=== PATIENT | female | born 1955 | race African-American/Black ===

== ENCOUNTER 2019-01-31 20:37 | Inpatient (IN) | payer MEDICARE ==
[2019-01-31] MEDS ORDERED: Lorazepam 2 MG/ML VIAL SLOW IVP PRN (21:21)
--- NOTE | 2019-01-31 21:45 | PDOC.EVN ---
Event Note - Event Note Event Note: [id number] HP
[2019-01-31] MEDS ORDERED: cefTRIAXone\\ROCEPHIN 2 GM VIAL ONE (21:59)
[2019-01-31] MEDS ORDERED: Azithromycin 500 MG VIAL ONE (21:59)
--- NOTE | 2019-01-31 22:37 | HP ---
CHIEF COMPLAINT: Seizures. HISTORY OF PRESENT ILLNESS: Ms. Conway is a 63-year-old female with past medical history of seizures, asthma, thrombocytopenia, urinary incontinence, developmental disorder, being transferred from [facility] after she presented there with seizure activity. It was described that the patient leaned back and her eyes rolled back. It was also reported the patient was screaming during the seizure activity? Initially, the patient was complaining of pain in the right lower extremity. Also it was reported that the oxygen saturation went down from 98% to 94% en route and was placed on 4 L/minute nasal cannula. Currently, the patient is 100% oxygen saturation on room air. The patient is a poor historian, but she is awake, unable to provide any history at this point. PAST MEDICAL HISTORY: 1. Developmental disorder/impairment. 2. Seizures. 3. Asthma? 4. Thrombocytopenia. PAST SURGICAL HISTORY: No reported past surgical history. SOCIAL HISTORY: The patient lives at home with stepmother. No reported history of alcohol use, drug use or smoking. ALLERGIES: ALLERGIC TO PENICILLIN. HOME MEDICATIONS: Please see home medication reconciliation form for updated medications. FAMILY HISTORY: Unknown. REVIEW OF SYSTEMS: Unable to obtain due to the patient's underlying condition. PHYSICAL EXAMINATION: GENERAL: The patient is awake, alert, does not appear to be in acute distress. VITAL SIGNS: Blood pressure 117/66, pulse is 91, respiratory rate is 24, temperature 98.6, and pulse oximetry is 100% on room air. HEAD AND NECK: Normocephalic, atraumatic. NECK: Supple. No JVD. CHEST: Clear bilateral air entry. HEART: S1 and S2. Regular. ABDOMEN: Soft, nontender. Bowel sounds present. NEUROLOGIC: Awake, alert, moving extremities. PSYCHIATRIC: Unable to assess. EXTREMITIES: No clubbing or cyanosis. LABORATORY DATA: WBC is 5.3, hemoglobin 11.8, platelets 112. Sodium 143, potassium 3.7, glucose 135. Initial lactic acid was 6.3. Repeat lactic acid is 4.1. IMAGING STUDIES: CTA of the chest was done, which shows chronic changes with signs of pulmonary arterial hypertension. ASSESSMENT: 1. Seizures, breakthrough? 2. Oxygen desaturation, transient. 3. Lactic acidosis, no obvious signs of infection at this point. 4. Developmental/neurological disorder. 5. Asthma. 6. History of thrombocytopenia. PLAN: 1. Admit. 2. Frequent neuro checks. 3. Seizure precautions. 4. Use benzodiazepine as needed for seizure activity. 5. Reconcile home medications. 6. Consult Neurology in a.m. for evaluation of further recommendations. 7. Continue IV fluid hydration and follow lactic acid level. 8. Cultures were done and the patient was given 1 dose of IV antibiotic in the ED, reassess in a.m. for the continuous need of antibiotic? 9. Reconcile home medications. 10. Deep venous thrombosis prophylaxis, SCD/mobilization. 11. Expected length of stay, 2 midnights or more. Job ID: [id number]
[2019-02-01] MEDS: Sodium Chloride 0.9% 1,000 ML IV SCH ×2 (00:14→14:36)
[2019-02-01 01:01] LABS: Lactic Acid 1.4 mmol/L (0.5-2.2)
[2019-02-01 07:29] VITALS: BMI 41.4
[2019-02-01] MEDS ORDERED: PHENobarbital 32.4 MG TAB PO SCH ×2 (09:45→21:00)
--- NOTE | 2019-02-01 16:15 | PRG ---
DATE OF SERVICE: 02/01/2019 SUBJECTIVE: The patient is seen and examined at the bedside. She is a very poor historian. She does not know what medications she is taking and how she is taking them. OBJECTIVE: VITAL SIGNS: Blood pressure is 115/73, pulse is 110, temperature is 99.8, respiratory rate is 18, and O2 saturation is 97% on room air. HEENT: Head is atraumatic and normocephalic. Eyes are PERRLA. Sclerae are nonicteric. Oral mucosa is moist. NECK: Supple. LUNGS: Breath sounds slightly diminished at both bases. No crackles. No rales. HEART: S1 and S2 normal. Tachycardic. No S3. No S4. ABDOMEN: Soft and obese. NEUROLOGIC: She follows my commands. She moves her all 4 extremities. IMPRESSION: 1. Recurrent seizures. 2. Lactic acidosis, most likely related to seizures. 3. History of asthma. 4. Developmental/neurological disorder. 5. History of thrombocytopenia. PLAN: We were not able to find any good source of home medications, she is taking and she was not able to help us. We will put her on a regimen, which was in our file from the previous encounters. We will have the neurologist to stop by and see her and recommend any antiseizure medicines. For now, we will continue her phenobarbital and her blood cultures came back negative, so I think all this was just breakthrough seizures and we will try to call the Pharmacy, but today is Saturday and everything is closed. We will see what we can do tomorrow. Job ID: [id number]
[2019-02-01] MEDS: Montelukast Sodium 10 mg Tablet PO SCH (20:27)
[2019-02-01] MEDS: Acetaminophen 325 MG TAB PO PRN (20:28)
[2019-02-01] MEDS: PHENobarbital 32.4 MG TAB PO SCH (20:28)
[2019-02-02] MEDS: Sodium Chloride 0.9% 1,000 ML IV SCH ×2 (01:50→14:30)
[2019-02-02 06:12] LABS: Anion Gap 7 mmol/L (10-20); BUN (Urea Nitrogen) 10 mg/dL (9.8-20.1); Calc. Creatinine Clearance 133 mL/min (70-130); Calcium 8.3 mg/dL (7.8-10.44); Carbon Dioxide 26 mmol/L (23-31); Chloride 112 mmol/L (98-107); Estimated GFR-MDRD Greater than 90; Glucose 100 mg/dL (80-115); Potassium 3.8 mmol/L (3.5-5.1); Sodium 141 mmol/L (136-145)
[2019-02-02 06:49] LABS: #Lymphocytes 0.5 thou/uL (1.20-3.40); #Monocytes 0.4 thou/uL (0.11-0.59); #Neutrophils 2.5 thou/uL (1.40-6.50); %Lymphocytes 14.3 % (21.0-51.0); %Monocytes 10.5 % (0.0-10.0); %Neutrophils 75.3 % (42.0-75.0); Hemoglobin 10.6 g/dL (12.0-16.0); Mean Corpuscular HGB CONC 32.7 g/dL (32.0-36.0); Mean Corpuscular Volume 88.5 fL (78.0-98.0); Mean Platelet Volume 7.2 fL (7.4-10.4); Platelet Count 87 thou/uL (130-400); RBC Distribution Width 12.7 % (11.5-14.5); Red Blood Cell (RBC) Count 3.68 mill/uL (4.20-5.40); White Blood Cell (WBC) Count 3.3 thou/uL (4.8-10.8)
[2019-02-02] MEDS: PHENobarbital 32.4 MG TAB PO SCH (09:55)
--- NOTE | 2019-02-02 14:38 | PRG ---
DATE OF SERVICE: 02/02/2019 SUBJECTIVE: The patient is seen and examined at the bedside. She is feeling good. She does not have much complaints to offer. There was no any unexpected events overnight. She did not have any seizures. She is tolerating food. OBJECTIVE: VITAL SIGNS: Blood pressure is 127/85, pulse is 95, temperature is 98.9, respirations 22, O2 saturation is 97% on room air. HEENT: Head is atraumatic and normocephalic. Eyes are PERRLA. Sclerae are nonicteric. Oral mucosa is moist. NECK: Supple. LUNGS: Clear. HEART: S1 and S2 normal. No S3. No S4. ABDOMEN: Soft, nontender, and nondistended. EXTREMITIES: No clubbing, cyanosis, or edema. NEUROLOGIC: She follows my commands. She moves all 4 extremities. There is some weakness in the lower extremities, 3/5 in both lower extremities. LABORATORY DATA: White count of 3.3, hemoglobin 10.6, hematocrit 32.5, platelet count is 87,000. Sodium of 141, potassium 3.8, chloride 112, CO2 of 26, BUN 10, creatinine 0.77. Phenobarbital level is less than 2.0. Calcium 8.3. IMPRESSION AND PLAN: 1. Recurrent seizures. The patient did not have more seizures during this hospitalization. She had additional dose of phenobarbital yesterday and she is on her regular dose at this point. Her level on phenobarbital was low. 2. Lactic acidosis, most likely related to seizures. 3. History of asthma. 4. Developmental/neurological disorder. 5. History of thrombocytopenia, which could be related to bone marrow suppression maybe by phenobarbital. I am going to switch her to Keppra 500 mg twice a day. Also, we will get Physical Therapy to evaluate her and treat, and we are trying to get new provider since the previous provider did not meet the patient's expectations and the Adult Protective Services were called. Job ID: [id number]
[2019-02-02] MEDS: levETIRAcetam 500 MG TAB PO SCH (20:12)
[2019-02-02] MEDS: Montelukast Sodium 10 mg Tablet PO SCH (20:16)
[2019-02-02] MEDS: Acetaminophen 325 MG TAB PO PRN (20:23)
[2019-02-03] MEDS ORDERED: Melatonin 3 MG TAB PO PRN (00:36)
[2019-02-03] MEDS: Sodium Chloride 0.9% 1,000 ML IV SCH (04:28)
[2019-02-03 06:12] LABS: #Lymphocytes 0.6 thou/uL (1.20-3.40); #Monocytes 0.3 thou/uL (0.11-0.59); #Neutrophils 2.1 thou/uL (1.40-6.50); %Eosinophils 0.1 % (0.0-10.0); %Lymphocytes 18.9 % (21.0-51.0); %Monocytes 10.5 % (0.0-10.0); %Neutrophils 70.5 % (42.0-75.0); Hemoglobin 10.9 g/dL (12.0-16.0); Mean Corpuscular HGB CONC 32.2 g/dL (32.0-36.0); Mean Corpuscular Hemoglobin 28.9 pg (27.0-31.0); Mean Corpuscular Volume 89.8 fL (78.0-98.0); Mean Platelet Volume 7.2 fL (7.4-10.4); Platelet Count 79 thou/uL (130-400); RBC Distribution Width 12.6 % (11.5-14.5); Red Blood Cell (RBC) Count 3.76 mill/uL (4.20-5.40)
[2019-02-03] MEDS: levETIRAcetam 500 MG TAB PO SCH ×2 (08:05→20:00)
--- NOTE | 2019-02-03 11:05 | PDOC.HOSPP ---
- Subjective Encounter Date: 02/03/19 Encounter Time: 08:15 Subjective: Patient seen and examined. No new complaints. No overnight events - Objective Vital Signs & Weight: Vital Signs (12 hours) Temp Pulse Resp BP Pulse Ox 02/03/19 08:00 98 02/03/19 05:58 85 99 02/03/19 04:54 98.4 F 83 20 122/80 98 02/03/19 00:00 99.1 F 91 20 115/74 99 Weight Weight 249 lb 1.957 oz I&O: 02/02/19 02/03/19 02/04/19 06:59 06:59 06:59 Intake Total 2700 3205 300 Output Total 1225 2300 Balance 1475 905 300 Result Diagrams: 02/03/19 05:50 02/02/19 04:58 Hospitalist ROS - Review of Systems Constitutional: denies: fever, chills, sweats, weakness, malaise, other Eyes: denies: pain, vision change, conjunctivae inflammation, eyelid inflammation, redness, other ENT: denies: ear pain, ear discharge, nose pain, nose discharge, nose congestion , mouth pain, mouth swelling, throat pain, throat swelling, other Respiratory: denies: cough, dry, shortness of breath, hemoptysis, SOB with excertion, pleuritic pain, sputum, wheezing, other Cardiovascular: denies: chest pain, palpitations, orthopnea, paroxysmal noc. dyspnea, edema, light headedness, other Gastrointestinal: denies: nausea, vomiting, abdominal pain, diarrhea, constipation, melena, hematochezia, other Genitourinary: denies: dysuria, frequency, incontinence, hematuria, retention, other Musculoskeletal: denies: neck pain, shoulder pain, arm pain, back pain, hand pain, leg pain, foot pain, other Skin: denies: rash, lesions, mao, bruising, other Neurological: denies: weakness, numbness, incoordination, change in speech, confusion, seizures, other - Medication Medications: Active Medications Generic Name Dose Route Start Last Admin Trade Name Freq PRN Reason Stop Dose Admin Acetaminophen 650 mg 02/01/19 20:18 02/02/19 20:23 Tylenol PO 650 mg Q6H PRN Administration Headache/Fever or Pain Albuterol/Ipratropium 3 ml 02/01/19:34 02/03/19 05:58 Duoneb NEB 3 ml Q4H PRN Administration SOB &/or Wheezing Sodium Chloride 1,000 mls @ 75 mls/hr 01/31/19 22:00 02/03/19 04:28 Normal Saline 0.9% IV Not Given .[id number] STEPHEN Levetiracetam 500 mg 02/02/19 21:00 02/03/19 08:05 Keppra PO 500 mg BID STEPHEN Administration Melatonin 3 mg 02/03/19 00:36 02/03/19 00:43 Melatonin PO 02/04/19 00:37 3 mg ONE PRN Administration Insomnia Montelukast Sodium 10 mg 02/01/19 21:00 02/02/19 20:16 Singulair PO 10 mg HS STEPHEN Administration Sodium Chloride 10 ml 02/01/19 21:00 02/03/19 08:05 Flush - Normal Saline IVF Not Given Q12HR STEPHEN - Exam General Appearance: NAD, awake alert Eye: PERRL, anicteric sclera ENT: normocephalic atraumatic, no oropharyngeal lesions Neck: supple, symmetric, no JVD, no thyromegaly Heart: RRR, no murmur, no gallops, no rubs, normal peripheral pulses Respiratory: CTAB, no wheezes, no rales, no ronchi, normal chest expansion Gastrointestinal: soft, non-tender, non-distended, normal bowel sounds Extremities: no cyanosis, no clubbing, no edema Skin: normal turgor, no lesions, no rashes Neurological: cranial nerve grossly intact, normal sensation to touch, no weakness, no focal deficits, no new deficit Musculoskeletal: normal tone, normal strength Psychiatric: normal affect, normal behavior, A&O x 3 Hosp A/P (1) Seizure Code(s): R56.9 - UNSPECIFIED CONVULSIONS Status: Acute (2) Lactic acidosis Code(s): E87.2 - ACIDOSIS Status: Acute (3) Pancytopenia Code(s): D61.818 - OTHER PANCYTOPENIA Status: Acute (4) Asthma Code(s): J45.909 - UNSPECIFIED ASTHMA, UNCOMPLICATED Status: Chronic Qualifiers: Asthma severity: mild Asthma persistence: intermittent Asthma complication type: uncomplicated Qualified Code(s): J45.20 - Mild intermittent asthma, uncomplicated (5) Seizure disorder Code(s): G40.909 - EPILEPSY, UNSP, NOT INTRACTABLE, WITHOUT STATUS EPILEPTICUS Status: Chronic - Plan old records reviewed/req, PT/OT continue keppra monitor medication reviewed as above symptomatic treatment neurology consult pending add folic acid and vitamin B12
[2019-02-03] MEDS: Acetaminophen 325 MG TAB PO PRN (19:53)
[2019-02-03] MEDS: Montelukast Sodium 10 mg Tablet PO SCH (20:00)
--- NOTE | 2019-02-03 21:29 | CON ---
DATE OF CONSULTATION: 02/03/2019 CONSULTING PHYSICIAN: Hospitalist Service. IMPRESSION: 1. Chronic seizures. 2. Noncompliance or poor absorption of phenobarbital. PLAN: 1. Keppra 500 mg twice a day. 2. Office followup. HISTORY OF PRESENT ILLNESS: Ms. Conway is a 63-year-old black female with a known history of seizures. She was admitted with shortness of breath after a recent blackout. There was no seizure activity reported. Her phenobarbital level was zero. Her workup suggests the possibility of pneumonia. She has been afebrile since admission. We started her on Keppra yesterday. She seems to be tolerating it well. PAST MEDICAL HISTORY: Unremarkable. FAMILY HISTORY: Unremarkable. SOCIAL HISTORY: No tobacco or alcohol. ALLERGIES: PENICILLIN. REVIEW OF SYSTEMS: Ten-system review of systems is otherwise negative. MEDICATIONS: Reviewed. PHYSICAL EXAMINATION: GENERAL: She is a somewhat overweight middle-aged woman, sitting up in her chair, in no distress. VITAL SIGNS: Stable. She is afebrile. HEENT: Pupils are equal and reactive. Conjunctivae are clear. Oropharynx is clear. NECK: Supple. EXTREMITIES: No cyanosis or edema. NEUROLOGIC: She is alert and appropriate. Her speech is fluent and clear. Cranial nerves are intact. Motor exam shows equal advanced practice provider strength. No abnormal movements are seen. Gait is not tested. LABORATORY DATA: EKG shows normal sinus rhythm. SUMMARY: This is a middle-aged woman with a history of seizures. She had a subtherapeutic phenobarbital level. It would be safer to switch her over to Keppra to avoid the possibility of withdrawal if she is noncompliant. Job ID: [id number]
[2019-02-04] MEDS: Folic Acid 1 MG TAB PO SCH (08:06)
[2019-02-04] MEDS: levETIRAcetam 500 MG TAB PO SCH ×2 (08:06→20:32)
[2019-02-04] MEDS: Cyanocobalamin (Vitamin B-12) 1,000 MCG TAB PO SCH (08:06)
[2019-02-04] MEDS: Acetaminophen 325 MG TAB PO PRN (19:14)
[2019-02-04] MEDS: Montelukast Sodium 10 mg Tablet PO SCH (20:32)
--- NOTE | 2019-02-04 23:10 | PDOC.HOSPP ---
- Subjective Subjective: Doing ok. Says she lives with her step-mother who is there to help her. Does not wear oxygen at home. - Objective Vital Signs & Weight: Vital Signs (12 hours) Temp Pulse Resp BP Pulse Ox 02/04/19 20:11 98.9 F 98 17 135/74 96 Weight Weight 249 lb 1.957 oz I&O: 02/03/19 02/04/19 02/05/19 06:59 06:59 06:59 Intake Total 3205 900 1500 Output Total 2300 Balance 235 520 3825 Result Diagrams: 02/03/19 05:50 02/02/19 04:58 Hospitalist ROS - Medication Medications: Active Medications Generic Name Dose Route Start Last Admin Trade Name Freq PRN Reason Stop Dose Admin Acetaminophen 650 mg 02/01/19 20:18 02/04/19 19:14 Tylenol PO 650 mg Q6H PRN Administration Headache/Fever or Pain Albuterol/Ipratropium 3 ml 02/01/19 10:34 02/03/19 05:58 Duoneb NEB 3 ml Q4H PRN Administration SOB &/or Wheezing Cyanocobalamin 1,000 mcg 02/04/19 09:00 02/04/19 08:06 Vitamin B-12 PO 1,000 mcg DAILY STEPHEN Administration Folic Acid 1 mg 02/04/19 09:00 02/04/19 08:06 Folvite PO 1 mg DAILY STEPHEN Administration Levetiracetam 500 mg 02/02/19 21:00 02/04/19 20:32 Keppra PO 500 mg BID STEPHEN Administration Montelukast Sodium 10 mg 02/01/19 21:00 02/04/19 20:32 Singulair PO 10 mg HS STEPHEN Administration Sodium Chloride 10 ml 02/01/19 21:00 02/04/19 20:33 Flush - Normal Saline IVF 10 ml Q12HR STEPHEN Administration - Exam General Appearance: NAD, awake alert Neck: supple, symmetric, no JVD, no thyromegaly, no lymphadenopathy, no carotid bruit Heart: RRR, no murmur, no gallops, no rubs, normal peripheral pulses Respiratory - other findings: Fine rales/wheezes at apices. Gastrointestinal: soft, non-tender, non-distended, normal bowel sounds, no palpable masses, no hepatomegaly, no splenomegaly, no bruit Skin: normal turgor Musculoskeletal: normal tone, normal strength, no muscle wasting Psychiatric: normal affect, normal behavior Hosp A/P (1) Pancytopenia Code(s): D61.818 - OTHER PANCYTOPENIA Status: Acute (2) Asthma Code(s): J45.909 - UNSPECIFIED ASTHMA, UNCOMPLICATED Status: Chronic Qualifiers: Asthma severity: mild Asthma persistence: intermittent Asthma complication type: uncomplicated Qualified Code(s): J45.20 - Mild intermittent asthma, uncomplicated (3) Seizure disorder Code(s): G40.909 - EPILEPSY, UNSP, NOT INTRACTABLE, WITHOUT STATUS EPILEPTICUS Status: Chronic - Plan Will check room air sats. Likely discharge tomorrow. Continue Quentin.
[2019-02-05] MEDS: levETIRAcetam 500 MG TAB PO SCH ×2 (09:48→20:00)
[2019-02-05] MEDS: Cyanocobalamin (Vitamin B-12) 1,000 MCG TAB PO SCH (09:48)
[2019-02-05] MEDS: Folic Acid 1 MG TAB PO SCH (09:48)
[2019-02-05] MEDS: Montelukast Sodium 10 mg Tablet PO SCH (20:00)
[2019-02-05] MEDS: Acetaminophen 325 MG TAB PO PRN (20:01)
[2019-02-06] MEDS: Folic Acid 1 MG TAB PO SCH (08:12)
[2019-02-06] MEDS: Cyanocobalamin (Vitamin B-12) 1,000 MCG TAB PO SCH (08:12)
[2019-02-06] MEDS: levETIRAcetam 500 MG TAB PO SCH (08:12)
[2019-02-06 11:29] VITALS: BP 121/78; TEMP 98.2
--- NOTE | 2019-02-09 09:42 | PQF ---
[facility] Professional Crystal Reports Winform JUANCARLOS Yoon RAJEEV VILA MD [id number] [facility] A [id number] CLINICAL DOCUMENTATION CLARIFICATION FORM: POST DISCHARGE Addendum to original discharge summary date: ____ Late entry note date: __ DATE: 02/09/2019 ATTN: RAJEEV CHRISTIANSEN MD Please exercise your independent, professional judgment in responding to the clarification form. Clinical indicators are provided on the bottom of this form for your review Please check appropriate box(s) to clarify if the following diagnosis has been ruled in or ruled out: Sepsis [ ] Ruled in diagnosis [ ] Continue to treat [ ] Resolved [ ] Ruled out diagnosis [ ] Cannot rule out diagnosis [ ] Other diagnosis [ ] Unable to determine For continuity of documentation, please document condition throughout progress notes and discharge summary. Thank You. CLINICAL INDICATORS - SIGNS / SYMPTOMS / LABS -Sepsis, PNA`- ED record, 01/31, Katy Ibarra MD - Lactic acidosis- H&P, 01/31, RAJEEV VILA MD - WBC:5.3-H&P, 01/31, RAJEEV VILA MD - No obvious signs of infection at this point-H&P, 02/03, RAJEEV VILA MD - her workup suggests the possibility of pneumonia-Consultation report, 02/03, Vladimir Shah MD RISK FACTORS - Seizure disorder- Hospital PN, 02/03, Justus Joyce MD - Pancytopenia-Hospital PN, 02/03, Justus Joyce MD TREATMENTS - Given 1 dose of IV antibiotic in ED- HP, 01/31, RAJEEV VILA MD - Azithromycin.IV-MAR, 01/31 (This form is maintained as a part of the permanent medical record) 2014 [employer]. All Rights Reserved Vladimir Jameson [not provided] [not provided] LORENZOD
--- NOTE | 2019-02-09 13:24 | DIS ---
DATE OF ADMISSION: 01/31/2019 DATE OF DISCHARGE: 02/06/2019 DISCHARGE DIAGNOSES: 1. Seizure. 2. Lactic acidosis. 3. Pancytopenia. 4. Asthma. 5. Pulmonary fibrosis. 6. History of seizure disorder. 7. Mild acute hypoxic respiratory failure. 8. History of some type of cognitive developmental delay. 9. Stage II decubitus. HISTORY OF PRESENT ILLNESS: This patient is a 63-year-old female who presented to the hospital after having a seizure. The patient had a history of known seizure disorder. Her lactic acid level was initially 6.3 with a repeat of 4.1. White count was 5.3, hemoglobin 11.8, platelets 112. CT of the chest was done, which showed some chronic changes with signs of pulmonary arterial hypertension. Vital signs were otherwise stable. Her sats dropped from 98 to 94. She was placed on oxygen. Her phenobarbital level was less than 2.0. HOSPITAL COURSE: The patient was admitted, started on Keppra. She was seen in consultation by Dr. Gilbert, who agreed switching over to Keppra to avoid potential for withdrawal symptoms should she become noncompliant. It appears that the [facility] was notified of the patient's situation given her subtherapeutic medication levels. The patient appeared to stabilize on the Keppra; however, her oxygen levels were still borderline. Ultimately, she was weaned off the oxygen and appeared to do well and was prepared for discharge. However, she had no means of getting home, so was kept on the following day until her stepmother, Michelle was able to come get her and take her home. PHYSICAL EXAMINATION: VITAL SIGNS: On the day of discharge, temperature was 98.2, pulse 86, respirations 20, O2 saturation 97% on room air, BP was 121/78. GENERAL: She was awake and alert. HEART: Regular rate and rhythm. LUNGS: Did have some mild fine scattered rales bilaterally. ABDOMEN: Soft, nontender. EXTREMITIES: No edema. DISPOSITION: The patient is discharged to home. ACTIVITY: As tolerated. DIET: She has no dietary restrictions. MEDICATIONS: She will be on: 1. Keppra 500 mg b.i.d. 2. Singulair 10 mg daily. 3. Oxybutynin ER 10 mg daily. 4. Lasix 20 mg daily. 5. Folic acid 1 mg daily. FOLLOWUP: She will follow up with Dr. Pablo Gilbert as directed and she will follow up with Dr. Terry in 7 days. She can return to the hospital should she have any problems prior to that time or if she has the need to do so. Of note, the patient did have an echocardiogram while in the hospital, which revealed an ejection fraction of 60% to 65% with normal right ventricular size and otherwise, essentially normal echo. The patient also had some early skin breakdown on the buttocks, is documented by the wound care photos in the record, appears to be likely some stage II decubitus. TIME SPENT: Time spent in the discharge activities was 37 minutes. Job ID: [id number]
== END 2019-02-06 14:04 | disposition home or self-care (01) | DRG 100 ==
LOC: ERS 20:37 → SURG A 21:31 → T4-B 02-02 21:05
PROVIDERS: ADMIT Internal Medicine; ATTEND Internal Medicine
DX: G40.909 Epilepsy, unspecified, not intractable, without status epilepticus (principal); J96.01 Acute respiratory failure with hypoxia; E87.2 Acidosis; D61.818 Other pancytopenia; J45.909 Unspecified asthma, uncomplicated; J84.10 Pulmonary fibrosis, unspecified; R62.59 Other lack of expected normal physiological development in childhood; R29.90 Unspecified symptoms and signs involving the nervous system; J45.20 Mild intermittent asthma, uncomplicated; D69.6 Thrombocytopenia, unspecified; L89.302 Pressure ulcer of unspecified buttock, stage 2; Z88.0 Allergy status to penicillin
CPT/HCPCS: 36415; 80048; 80184; 83605; 85025; 87040; 93306; 94640; 96365; 96367; J0456; J0696; J7620

== ENCOUNTER 2020-06-23 17:20 | Inpatient (IN) | payer MEDICARE, MEDICAID ==
[2020-06-23 18:03] LABS: #Lymphocytes 0.6 thou/uL (1.20-3.40); #Monocytes 0.5 thou/uL (0.11-0.59); #Neutrophils 5.9 thou/uL (1.40-6.50); %Basophils 0.1 % (0.0-1.0); %Eosinophils 0.1 % (0.0-10.0); %Lymphocytes 8.4 % (21.0-51.0); %Monocytes 7.3 % (0.0-10.0); Hemoglobin 9.5 g/dL (12.0-16.0); Mean Corpuscular HGB CONC 34.4 g/dL (32.0-36.0); Mean Corpuscular Hemoglobin 30.8 pg (27.0-31.0); Mean Corpuscular Volume 89.4 fL (78.0-98.0); Mean Platelet Volume 7.8 fL (7.4-10.4); Platelet Count 111 thou/uL (130-400); Red Blood Cell (RBC) Count 3.08 mill/uL (4.20-5.40)
[2020-06-23 18:20] LABS: ALT (SGPT) 10 U/L (8-55); AST (SGOT) 22 U/L (5-34); Albumin 3.4 g/dL (3.4-4.8); Alkaline Phosphatase 52 U/L (40-110); Anion Gap 17 mmol/L (10-20); BUN (Urea Nitrogen) 27 mg/dL (9.8-20.1); Bilirubin, Total 0.7 mg/dL (0.2-1.2); Calc. Creatinine Clearance 0 mL/min (70-130); Calcium 8.5 mg/dL (7.8-10.44); Carbon Dioxide 20 mmol/L (23-31); Chloride 107 mmol/L (98-107); Globulin 3.1 g/dL (2.4-3.5); Glucose 128 mg/dL (80-115); Potassium 4.1 mmol/L (3.5-5.1); Protein, Total 6.5 g/dL (5.8-8.1); Sodium 140 mmol/L (136-145)
[2020-06-23] MEDS ORDERED: Fentanyl 100 MCG/2 ML VIAL ONE (19:06)
[2020-06-23 19:34] LABS: Phosphorus 3.8 mg/dL (2.3-4.7)
[2020-06-23 19:56] LABS: CKMB 3.8 ng/mL (0-6.6)
[2020-06-23] MEDS ORDERED: Aspirin Chewable 81 MG TAB ONE (20:06)
[2020-06-23] MEDS ORDERED: Dextrose 50% Abboject 50 ML SYRINGE SLOW IVP PRN (20:14)
[2020-06-23] MEDS ORDERED: Dextrose 5% in Water 1,000 ML IV PRN (20:14)
[2020-06-23] MEDS ORDERED: Ondansetron PF 4 MG/2 ML Vial IVP PRN (20:14)
[2020-06-23] MEDS ORDERED: hydrALAZINE 20 MG/ML VIAL SLOW IVP PRN (20:14)
[2020-06-23] MEDS ORDERED: Morphine 2 MG/ML VIAL SLOW IVP PRN (20:14)
[2020-06-23] MEDS ORDERED: traMADol HCl 50 MG TAB PO PRN (20:18)
[2020-06-23] MEDS ORDERED: Cyclobenzaprine 10 MG TAB PO PRN (20:18)
[2020-06-23] MEDS ORDERED: traMADol HCl 50 MG TAB PO SCH (20:30)
[2020-06-23] MEDS ORDERED: Famotidine 20 MG TAB PO SCH (21:00)
[2020-06-23] MEDS: Senokot S 8.6-50 MG TAB PO SCH (22:53)
[2020-06-23] MEDS: Acetaminophen 500 MG TAB PO SCH (22:53)
[2020-06-23] MEDS: Sodium Chloride 0.9% 1,000 ML IV SCH (22:56)
[2020-06-23] MEDS: levETIRAcetam 500 MG TAB PO SCH (22:56)
[2020-06-23] MEDS: Ascorbic Acid 500 mg Chewable Tablet PO SCH (22:56)
[2020-06-24 00:05] LABS: Bacteria/HPF None Seen HPF (None Seen); Bilirubin Negative (Negative); Blood, Urine Trace (Negative); Clarity Extra Turbid (Clear); Glucose, Urine (Dipstick) Normal (Negative); Ketone, Urine Trace mg/dL (Negative); Leukocyte Negative Leu/uL (Negative); Nitrite Negative (Negative); Protein, Urine (Dipstick) 20 mg/dL (Neg-Trace); RBC/HPF 0-3 HPF (0-3); Specific Gravity, Urine 1.027 (1.002-1.036); Squamous Epithelial 0-3 HPF (0-3); Urobilinogen Normal mg/dL (Less than 2); WBC/HPF None Seen HPF (0-3); pH, Urine 5.5 (5.0-9.0)
[2020-06-24 00:16] LABS: Urine Culture Reflex No No
[2020-06-24] MEDS: Acetaminophen 500 MG TAB PO SCH (01:34)
[2020-06-24] MEDS ORDERED: Sodium Chloride 0.9% 500 ML IV SCH (02:15)
[2020-06-24 02:36] LABS: SARS-CoV-2 PCR by NAA Not Detected (NotDetected)
[2020-06-24 05:01] LABS: #Lymphocytes 0.6 thou/uL (1.20-3.40); #Monocytes 0.4 thou/uL (0.11-0.59); #Neutrophils 3.6 thou/uL (1.40-6.50); %Basophils 0.4 % (0.0-1.0); %Eosinophils 0.2 % (0.0-10.0); %Lymphocytes 12.4 % (21.0-51.0); %Monocytes 8.4 % (0.0-10.0); %Neutrophils 78.7 % (42.0-75.0); Hemoglobin 7.2 g/dL (12.0-16.0); Mean Corpuscular HGB CONC 34.6 g/dL (32.0-36.0); Mean Corpuscular Hemoglobin 30.9 pg (27.0-31.0); Mean Corpuscular Volume 89.3 fL (78.0-98.0); Mean Platelet Volume 7.7 fL (7.4-10.4); Platelet Count 86 thou/uL (130-400); RBC Distribution Width 12.7 % (11.5-14.5); Red Blood Cell (RBC) Count 2.33 mill/uL (4.20-5.40); White Blood Cell (WBC) Count 4.6 thou/uL (4.8-10.8)
[2020-06-24 05:14] LABS: Anion Gap 12 mmol/L (10-20); BUN (Urea Nitrogen) 24 mg/dL (9.8-20.1); Calc. Creatinine Clearance 76 mL/min (70-130); Calcium 7.9 mg/dL (7.8-10.44); Carbon Dioxide 22 mmol/L (23-31); Chloride 110 mmol/L (98-107); Glucose 116 mg/dL (80-115); Magnesium 2.4 mg/dL (1.6-2.6); Phosphorus 3.7 mg/dL (2.3-4.7); Sodium 140 mmol/L (136-145)
[2020-06-24 05:34] LABS: CKMB 2.7 ng/mL (0-6.6)
[2020-06-24] MEDS ORDERED: Clindamycin/D5W 900 MG in Premix Bag 1 BAG IVPB SCH (07:15)
[2020-06-24] MEDS: Ferrous Sulfate 325 MG TAB PO SCH ×2 (08:40→16:41)
[2020-06-24] MEDS: Acetaminophen 325 MG TAB PO SCH ×3 (08:40→21:09)
[2020-06-24] MEDS: levETIRAcetam 500 MG TAB PO SCH ×2 (08:41→21:10)
[2020-06-24] MEDS: Polyethylene Glycol 3350 17 GM Packet PO SCH (08:41)
[2020-06-24] MEDS: Ascorbic Acid 500 mg Chewable Tablet PO SCH ×2 (08:41→21:10)
[2020-06-24] MEDS: Senokot S 8.6-50 MG TAB PO SCH ×2 (08:41→21:09)
[2020-06-24] MEDS ORDERED: Hydrocortisone Sod Succ/PF 100 mg/2 ml Vial IVP SCH (08:45)
[2020-06-24] MEDS ORDERED: Midazolam HCl 2 mg/2 ml Vial ONE ×2 (09:37→12:38)
[2020-06-24] MEDS ORDERED: Fentanyl 100 MCG/2 ML VIAL ONE ×2 (09:38→10:27)
[2020-06-24] MEDS ORDERED: Clindamycin/D5W 900 mg/50 ml Premix Bag ONE (09:39)
[2020-06-24] MEDS ORDERED: Bupivacaine HCl 0.5%/Epinephrine 1:200,000/PF 30 ml Vial ONE (09:40)
[2020-06-24] MEDS ORDERED: Calcium Chloride 1 GM/10 ML Abboject SYRINGE ONE (09:40)
[2020-06-24] MEDS ORDERED: Lidocaine 1% PF 5 ML VIAL ONE (09:40)
[2020-06-24] MEDS ORDERED: Dexamethasone 20 MG/5 ML VIAL ONE (09:40)
[2020-06-24] MEDS ORDERED: Ondansetron PF 4 MG/2 ML Vial ONE (09:40)
[2020-06-24] MEDS ORDERED: PROPOFOL 200 MG/20 ML VIAL ONE (09:40)
[2020-06-24] MEDS ORDERED: Rocuronium Bromide 10 MG/ML (10ML VIAL) ONE (09:40)
[2020-06-24] MEDS ORDERED: ePHEDrine 50 MG/ML VIAL ONE (09:40)
[2020-06-24] MEDS ORDERED: PHENYLEPHRINE-NS 100 MCG/ML 10 ML SYRINGE ONE (09:40)
[2020-06-24] MEDS ORDERED: Phenylephrine 10 MG/ML VIAL ONE (11:02)
[2020-06-24] MEDS ORDERED: Promethazine HCl 25 MG/ML VIAL SLOW IVP PRN ×2 (12:28→13:09)
[2020-06-24] MEDS ORDERED: Promethazine HCl 25 MG/ML VIAL IM PRN ×2 (12:28→13:09)
[2020-06-24] MEDS ORDERED: PACU-Morphine 4MG/ML VIAL SLOW IVP PRN (12:28)
[2020-06-24] MEDS ORDERED: SUGAMMADEX SODIUM 200 MG/2 ML VIAL ONE (12:50)
[2020-06-24] MEDS ORDERED: Ondansetron HCl/PF 4 MG/2 ML Vial IVP PRN (13:09)
[2020-06-24 13:34] LABS: Hemoglobin 9.9 g/dL (12.0-16.0); Platelet Count 104 thou/uL (130-400)
[2020-06-24 13:39] LABS: INR-International Normal Ratio 1.3; PTT 32.3 sec (22.9-36.1); Prothrombin Time 16.3 sec (12.0-14.7)
[2020-06-24] MEDS: Sodium Chloride 0.9% 1,000 ML IV SCH ×2 (14:33→14:57)
[2020-06-24] MEDS: Acetaminophen/Codeine 30-300mg Tablet PO SCH ×2 (14:34→16:40)
[2020-06-24] MEDS: Hydrocortisone Sod Succ/PF 100 mg/2 ml Vial IVP SCH ×2 (14:35→16:41)
[2020-06-24] MEDS: Clindamycin/D5W 900 MG in Premix Bag 1 BAG IVPB SCH ×2 (15:05→21:11)
[2020-06-24] MEDS: Famotidine 20 MG TAB PO SCH (21:10)
[2020-06-25] MEDS: Acetaminophen/Codeine 30-300mg Tablet PO SCH ×4 (00:23→17:21)
[2020-06-25] MEDS: Sodium Chloride 0.9% 1,000 ML IV SCH ×2 (00:23→06:25)
[2020-06-25] MEDS: Hydrocortisone Sod Succ/PF 100 mg/2 ml Vial IVP SCH ×4 (00:25→17:20)
[2020-06-25] MEDS: Acetaminophen 325 MG TAB PO SCH ×4 (04:33→20:07)
[2020-06-25 05:15] LABS: #Lymphocytes 0.3 thou/uL (1.20-3.40); #Monocytes 0.6 thou/uL (0.11-0.59); #Neutrophils 4.6 thou/uL (1.40-6.50); %Eosinophils 0.1 % (0.0-10.0); %Lymphocytes 5.7 % (21.0-51.0); %Neutrophils 84.2 % (42.0-75.0); Hemoglobin 8.2 g/dL (12.0-16.0); Mean Corpuscular HGB CONC 35.9 g/dL (32.0-36.0); Mean Corpuscular Hemoglobin 31.8 pg (27.0-31.0); Mean Corpuscular Volume 88.6 fL (78.0-98.0); Mean Platelet Volume 7.7 fL (7.4-10.4); Platelet Count 89 thou/uL (130-400); RBC Distribution Width 13.4 % (11.5-14.5); Red Blood Cell (RBC) Count 2.57 mill/uL (4.20-5.40); White Blood Cell (WBC) Count 5.5 thou/uL (4.8-10.8)
[2020-06-25] MEDS: levETIRAcetam 500 MG TAB PO SCH ×2 (07:50→20:10)
[2020-06-25] MEDS: Ferrous Sulfate 325 MG TAB PO SCH ×2 (07:50→17:21)
[2020-06-25] MEDS: Ascorbic Acid 500 mg Chewable Tablet PO SCH ×2 (07:50→20:10)
[2020-06-25] MEDS: Senokot S 8.6-50 MG TAB PO SCH ×2 (07:50→20:10)
[2020-06-25] MEDS: Polyethylene Glycol 3350 17 GM Packet PO SCH (07:51)
[2020-06-25 18:18] LABS: #Lymphocytes 0.4 thou/uL (1.20-3.40); #Monocytes 0.5 thou/uL (0.11-0.59); #Neutrophils 4.5 thou/uL (1.40-6.50); %Basophils 0.3 % (0.0-1.0); %Eosinophils 0.1 % (0.0-10.0); %Lymphocytes 6.7 % (21.0-51.0); %Neutrophils 83.9 % (42.0-75.0); Mean Corpuscular HGB CONC 34.8 g/dL (32.0-36.0); Mean Corpuscular Hemoglobin 31.1 pg (27.0-31.0); Mean Corpuscular Volume 89.3 fL (78.0-98.0); Mean Platelet Volume 7.5 fL (7.4-10.4); Platelet Count 92 thou/uL (130-400); RBC Distribution Width 13.6 % (11.5-14.5); Red Blood Cell (RBC) Count 2.58 mill/uL (4.20-5.40); White Blood Cell (WBC) Count 5.4 thou/uL (4.8-10.8)
[2020-06-25] MEDS: Famotidine 20 MG TAB PO SCH (20:10)
[2020-06-26] MEDS: Acetaminophen/Codeine 30-300mg Tablet PO SCH ×4 (00:07→17:39)
[2020-06-26] MEDS: Hydrocortisone Sod Succ/PF 100 mg/2 ml Vial IVP SCH ×4 (00:08→17:39)
[2020-06-26] MEDS: Acetaminophen 325 MG TAB PO SCH ×4 (02:40→20:02)
[2020-06-26 04:51] LABS: #Lymphocytes 0.3 thou/uL (1.20-3.40); #Monocytes 0.5 thou/uL (0.11-0.59); #Neutrophils 4.1 thou/uL (1.40-6.50); %Lymphocytes 5.9 % (21.0-51.0); Hemoglobin 7.4 g/dL (12.0-16.0); Mean Corpuscular HGB CONC 34.9 g/dL (32.0-36.0); Mean Corpuscular Hemoglobin 31.3 pg (27.0-31.0); Mean Corpuscular Volume 89.8 fL (78.0-98.0); Mean Platelet Volume 7.7 fL (7.4-10.4); Platelet Count 94 thou/uL (130-400); RBC Distribution Width 13.5 % (11.5-14.5); Red Blood Cell (RBC) Count 2.37 mill/uL (4.20-5.40); White Blood Cell (WBC) Count 4.9 thou/uL (4.8-10.8)
[2020-06-26] MEDS: Ferrous Sulfate 325 MG TAB PO SCH ×2 (07:51→17:39)
[2020-06-26] MEDS: Senokot S 8.6-50 MG TAB PO SCH ×2 (07:51→20:03)
[2020-06-26] MEDS: Polyethylene Glycol 3350 17 GM Packet PO SCH (07:51)
[2020-06-26] MEDS: levETIRAcetam 500 MG TAB PO SCH ×2 (07:52→20:03)
[2020-06-26] MEDS: Ascorbic Acid 500 mg Chewable Tablet PO SCH ×2 (07:52→20:02)
[2020-06-26] MEDS: Famotidine 20 MG TAB PO SCH (20:02)
[2020-06-27 00:12] LABS: INR-International Normal Ratio 1.1; PTT 34.6 sec (22.9-36.1); Prothrombin Time 14.4 sec (12.0-14.7)
[2020-06-27] MEDS: Acetaminophen/Codeine 30-300mg Tablet PO SCH ×5 (00:17→23:24)
[2020-06-27] MEDS: Hydrocortisone Sod Succ/PF 100 mg/2 ml Vial IVP SCH ×5 (00:18→23:25)
[2020-06-27] MEDS: Acetaminophen 325 MG TAB PO SCH ×4 (02:45→20:42)
[2020-06-27 05:39] LABS: #Lymphocytes 0.4 thou/uL (1.20-3.40); #Monocytes 0.5 thou/uL (0.11-0.59); #Neutrophils 3.6 thou/uL (1.40-6.50); %Basophils 0.9 % (0.0-1.0); %Lymphocytes 8.6 % (21.0-51.0); %Monocytes 10.2 % (0.0-10.0); %Neutrophils 80.2 % (42.0-75.0); Hemoglobin 8.2 g/dL (12.0-16.0); Mean Corpuscular HGB CONC 34.1 g/dL (32.0-36.0); Mean Corpuscular Hemoglobin 31.2 pg (27.0-31.0); Mean Corpuscular Volume 91.5 fL (78.0-98.0); Mean Platelet Volume 7.7 fL (7.4-10.4); Platelet Count 100 thou/uL (130-400); RBC Distribution Width 13.9 % (11.5-14.5); Red Blood Cell (RBC) Count 2.63 mill/uL (4.20-5.40); White Blood Cell (WBC) Count 4.5 thou/uL (4.8-10.8)
[2020-06-27] MEDS: Senokot S 8.6-50 MG TAB PO SCH ×2 (09:23→20:44)
[2020-06-27] MEDS: levETIRAcetam 500 MG TAB PO SCH ×2 (09:23→20:41)
[2020-06-27] MEDS: Ascorbic Acid 500 mg Chewable Tablet PO SCH ×2 (09:23→20:40)
[2020-06-27] MEDS: Ferrous Sulfate 325 MG TAB PO SCH ×2 (09:23→18:00)
[2020-06-27] MEDS: Polyethylene Glycol 3350 17 GM Packet PO SCH (09:25)
[2020-06-27 12:21] LABS: Anion Gap 8 mmol/L (10-20); BUN (Urea Nitrogen) 19 mg/dL (9.8-20.1); Calc. Creatinine Clearance 102 mL/min (70-130); Calcium 8.1 mg/dL (7.8-10.44); Carbon Dioxide 30 mmol/L (23-31); Chloride 109 mmol/L (98-107); Glucose 161 mg/dL (80-115); Sodium 143 mmol/L (136-145)
[2020-06-27] MEDS: Acetaminophen/Codeine 30-300mg Tablet PO PRN (12:59)
[2020-06-27 13:22] VITALS: BMI 33.3
[2020-06-27] MEDS: Famotidine 20 MG TAB PO SCH (20:45)
[2020-06-28] MEDS: Acetaminophen 325 MG TAB PO SCH ×4 (03:56→21:16)
[2020-06-28 06:07] LABS: #Lymphocytes 0.4 thou/uL (1.20-3.40); #Monocytes 0.4 thou/uL (0.11-0.59); #Neutrophils 3.7 thou/uL (1.40-6.50); %Basophils 0.2 % (0.0-1.0); %Eosinophils 0.2 % (0.0-10.0); %Lymphocytes 9.1 % (21.0-51.0); %Monocytes 8.3 % (0.0-10.0); %Neutrophils 82.1 % (42.0-75.0); Hemoglobin 8.6 g/dL (12.0-16.0); Mean Corpuscular HGB CONC 32.6 g/dL (32.0-36.0); Mean Corpuscular Hemoglobin 30.1 pg (27.0-31.0); Mean Corpuscular Volume 92.4 fL (78.0-98.0); Mean Platelet Volume 7.6 fL (7.4-10.4); Platelet Count 131 thou/uL (130-400); RBC Distribution Width 14.4 % (11.5-14.5); Red Blood Cell (RBC) Count 2.85 mill/uL (4.20-5.40); White Blood Cell (WBC) Count 4.6 thou/uL (4.8-10.8)
[2020-06-28 06:16] LABS: Anion Gap 11 mmol/L (10-20); BUN (Urea Nitrogen) 17 mg/dL (9.8-20.1); Calc. Creatinine Clearance 116 mL/min (70-130); Calcium 8.3 mg/dL (7.8-10.44); Carbon Dioxide 27 mmol/L (23-31); Chloride 108 mmol/L (98-107); Glucose 130 mg/dL (80-115); Potassium 4.1 mmol/L (3.5-5.1); Sodium 142 mmol/L (136-145)
[2020-06-28] MEDS: Hydrocortisone Sod Succ/PF 100 mg/2 ml Vial IVP SCH ×3 (06:31→17:26)
[2020-06-28] MEDS: Acetaminophen/Codeine 30-300mg Tablet PO SCH ×3 (06:31→17:26)
[2020-06-28] MEDS: Senokot S 8.6-50 MG TAB PO SCH ×2 (08:01→21:17)
[2020-06-28] MEDS: levETIRAcetam 500 MG TAB PO SCH ×2 (08:01→21:17)
[2020-06-28] MEDS: Ascorbic Acid 500 mg Chewable Tablet PO SCH ×2 (08:01→21:17)
[2020-06-28] MEDS: Ferrous Sulfate 325 MG TAB PO SCH ×2 (08:01→17:26)
[2020-06-28] MEDS: Polyethylene Glycol 3350 17 GM Packet PO SCH (08:01)
[2020-06-28] MEDS: Aspirin 81 mg Enteric Coated Tablet PO SCH ×2 (10:01→21:16)
[2020-06-28] MEDS: Famotidine 20 MG TAB PO SCH (21:16)
[2020-06-29] MEDS: Hydrocortisone Sod Succ/PF 100 mg/2 ml Vial IVP SCH ×3 (00:01→13:05)
[2020-06-29] MEDS: Acetaminophen/Codeine 30-300mg Tablet PO SCH ×3 (00:01→13:04)
[2020-06-29] MEDS: Acetaminophen 325 MG TAB PO SCH ×3 (03:16→13:05)
[2020-06-29] MEDS: Senokot S 8.6-50 MG TAB PO SCH (08:24)
[2020-06-29] MEDS: Polyethylene Glycol 3350 17 GM Packet PO SCH (08:24)
[2020-06-29] MEDS: levETIRAcetam 500 MG TAB PO SCH (08:25)
[2020-06-29] MEDS: Ferrous Sulfate 325 MG TAB PO SCH (08:25)
[2020-06-29] MEDS: Ascorbic Acid 500 mg Chewable Tablet PO SCH (08:25)
[2020-06-29] MEDS: Aspirin 81 mg Enteric Coated Tablet PO SCH (08:25)
[2020-06-29 11:19] VITALS: TEMP 98.6
[2020-06-29] MEDS: Acetaminophen/Codeine 30-300mg Tablet PO PRN (14:41)
[2020-06-29 15:19] VITALS: BP 145/80
== END 2020-06-29 15:21 | disposition swing bed (61) | DRG 481 ==
LOC: ERS 17:20 → 2NO 19:56 → SURG A 06-26 14:38
PROVIDERS: ADMIT Surgery; ATTEND Surgery
PROC: 0QS606Z Reposition Right Upper Femur with Intramedullary Internal Fixation Device, Open Approach (ICD-10-PCS; principal; 2020-06-24)
PROC: 30233L1 Transfusion of Nonautologous Fresh Plasma into Peripheral Vein, Percutaneous Approach (ICD-10-PCS; 2020-06-24)
PROC: 30233N0 Transfusion of Autologous Red Blood Cells into Peripheral Vein, Percutaneous Approach (ICD-10-PCS; 2020-06-24)
PROC: 30233R1 Transfusion of Nonautologous Platelets into Peripheral Vein, Percutaneous Approach (ICD-10-PCS; 2020-06-24)
DX: S72.21XA Displaced subtrochanteric fracture of right femur, initial encounter for closed fracture (principal); N17.9 Acute kidney failure, unspecified; I24.8 Other forms of acute ischemic heart disease; J45.909 Unspecified asthma, uncomplicated; D69.6 Thrombocytopenia, unspecified; R62.50 Unspecified lack of expected normal physiological development in childhood; D50.0 Iron deficiency anemia secondary to blood loss (chronic); G43.909 Migraine, unspecified, not intractable, without status migrainosus; W01.0XXA Fall on same level from slipping, tripping and stumbling without subsequent striking against object, initial encounter; Z79.899 Other long term (current) drug therapy; Z98.51 Tubal ligation status; Z88.0 Allergy status to penicillin; Z20.822 Contact with and (suspected) exposure to COVID-19
CPT/HCPCS: 36415; 36430; 71045; 76000; 80048; 80053; 80177; 81001; 82533; 82553; 83735; 83880; 84100; 84484; 85025; 85384; 85610; 85730; 86850; 86900; 86901; 87635; 93005; 94640; 96374; C1713; G0390; J1100; J1720; J2250; J2370; J2405; J2704; J3010; J3490; J7620; P9016; P9035; P9059; U0003; U0005

== ENCOUNTER 2020-09-03 19:18 | Inpatient (IN) | payer MEDICARE, MEDICAID ==
[2020-09-03] MEDS ORDERED: Diltiazem 125 MG/25 ML ONE (19:45)
[2020-09-03] MEDS ORDERED: Vancomycin 1 GM/200 ML BAG ONE (19:46)
[2020-09-03] MEDS ORDERED: cefTRIAXone\\ROCEPHIN 1 GM VIAL ONE (19:46)
[2020-09-03 20:19] LABS: Hemoglobin 12.1 g/dL (12.0-16.0); Mean Corpuscular HGB CONC 33.3 g/dL (32.0-36.0); Mean Corpuscular Hemoglobin 30.4 pg (27.0-31.0); Mean Corpuscular Volume 91.3 fL (78.0-98.0); RBC Distribution Width 12.9 % (11.5-14.5); Red Blood Cell (RBC) Count 3.99 mill/uL (4.20-5.40); White Blood Cell (WBC) Count 4.5 thou/uL (4.8-10.8)
[2020-09-03 20:39] LABS: ALT (SGPT) Less than 7 U/L (8-55); AST (SGOT) 12 U/L (5-34); Albumin 2.3 g/dL (3.4-4.8); Alkaline Phosphatase 65 U/L (40-110); Anion Gap 14 mmol/L (10-20); BUN (Urea Nitrogen) 10 mg/dL (9.8-20.1); Bilirubin, Total 1.1 mg/dL (0.2-1.2); Calc. Creatinine Clearance 0 mL/min (70-130); Calcium 7.5 mg/dL (7.8-10.44); Carbon Dioxide 23 mmol/L (23-31); Chloride 104 mmol/L (98-107); Globulin 3.3 g/dL (2.4-3.5); Glucose 115 mg/dL (80-115); Magnesium 1.5 mg/dL (1.6-2.6); Potassium 3.2 mmol/L (3.5-5.1); Protein, Total 5.6 g/dL (5.8-8.1); Sodium 138 mmol/L (136-145)
[2020-09-03 20:44] LABS: Bilirubin Negative (Negative); Blood, Urine Negative (Negative); Clarity Turbid (Clear); Glucose, Urine (Dipstick) Normal (Negative); Ketone, Urine Trace mg/dL (Negative); Leukocyte 75 Leu/uL (Negative); Nitrite Negative (Negative); Protein, Urine (Dipstick) 50 mg/dL (Neg-Trace); Specific Gravity, Urine 1.027 (1.002-1.036); Squamous Epithelial 0-3 HPF (0-3)
[2020-09-03 20:50] LABS: Bacteria/HPF 2+ HPF (None Seen)
[2020-09-03 20:51] LABS: Mucous/LPF 1+ LPF (<2+)
[2020-09-03 20:55] LABS: Band 22 % (5-11); Lymphocytes 4 % (21-51); MDiff Complete? YES; Mean Platelet Volume 8.1 fL (7.4-10.4); Metamyelocyte 1 % (0-0); Monocytes 5 % (0-10); Neutrophil 68 % (42-75); Platelet Count 113 thou/uL (130-400); Platelet Morphology Comment Appears Decreased; RBC Morphology Normal
[2020-09-03] MEDS ORDERED: Magnesium 2 GM/50 ML BAG (IN WATER) ONE (22:05)
[2020-09-03 23:12] LABS: Lactic Acid 1.4 mmol/L (0.5-2.2)
[2020-09-03] MEDS ORDERED: Ondansetron PF 4 MG/2 ML Vial IVP PRN (23:17)
[2020-09-03] MEDS ORDERED: Melatonin 3 MG TAB PO PRN (23:31)
[2020-09-03] MEDS ORDERED: Diltiazem 125 MG in Sodium Chloride 0.9% 100 ML IVPB SCH (23:45)
[2020-09-03] MEDS ORDERED: Potassium Chloride 20 MEQ TAB PO SCH (23:59)
[2020-09-03] MEDS ORDERED: Potassium Chloride 20 MEQ in Premix Bag 1 BAG IVPB SCH (23:59)
[2020-09-04 00:09] LABS: Troponin I Less than 0.010 ng/mL (< 0.028)
[2020-09-04 02:32] LABS: SARS-CoV-2 NAA Rapid Test Not Detected (NotDetected)
[2020-09-04 03:25] LABS: #Lymphocytes 0.3 thou/uL (1.20-3.40); #Monocytes 0.6 thou/uL (0.11-0.59); #Neutrophils 3.6 thou/uL (1.40-6.50); %Eosinophils 0.1 % (0.0-10.0); %Lymphocytes 7.5 % (21.0-51.0); %Monocytes 12.3 % (0.0-10.0); Hemoglobin 12.1 g/dL (12.0-16.0); Mean Corpuscular HGB CONC 33.5 g/dL (32.0-36.0); Mean Corpuscular Hemoglobin 30.7 pg (27.0-31.0); Mean Corpuscular Volume 91.8 fL (78.0-98.0); Mean Platelet Volume 7.5 fL (7.4-10.4); Platelet Count 117 thou/uL (130-400); RBC Distribution Width 12.8 % (11.5-14.5); Red Blood Cell (RBC) Count 3.93 mill/uL (4.20-5.40); White Blood Cell (WBC) Count 4.5 thou/uL (4.8-10.8)
[2020-09-04 03:43] LABS: Troponin I Less than 0.010 ng/mL (< 0.028)
[2020-09-04 03:47] LABS: Anion Gap 14 mmol/L (10-20); BUN (Urea Nitrogen) 10 mg/dL (9.8-20.1); Calc. Creatinine Clearance 107 mL/min (70-130); Calcium 7.7 mg/dL (7.8-10.44); Carbon Dioxide 23 mmol/L (23-31); Chloride 104 mmol/L (98-107); Glucose 122 mg/dL (80-115); Magnesium 2.4 mg/dL (1.6-2.6); Sodium 138 mmol/L (136-145)
[2020-09-04 03:54] LABS: Lactic Acid 1.9 mmol/L (0.5-2.2)
[2020-09-04 04:00] LABS: Potassium 2.7 mmol/L (3.5-5.1)
[2020-09-04] MEDS ORDERED: Potassium Chloride 20 MEQ TAB PO SCH (04:30)
[2020-09-04] MEDS: Cefepime 1 GM in Sodium Chloride 0.9% 100 ML IVPB SCH ×2 (05:18→17:13)
[2020-09-04 05:28] LABS: Troponin I 0.013 ng/mL (< 0.028)
[2020-09-04] MEDS: Oxybutynin ER 5 MG TAB PO SCH (08:54)
[2020-09-04] MEDS: Metoprolol Tartrate 25 MG TAB PO SCH ×2 (08:55→21:18)
[2020-09-04] MEDS: Ferrous Sulfate 325 MG TAB PO SCH (08:55)
[2020-09-04] MEDS: levETIRAcetam 500 MG TAB PO SCH ×2 (08:55→21:18)
[2020-09-04] MEDS: Folic Acid 1 MG TAB PO SCH (08:55)
[2020-09-04] MEDS: Aspirin 81 mg Enteric Coated Tablet PO SCH ×2 (08:55→21:17)
[2020-09-04] MEDS: Ascorbic Acid 500 mg Chewable Tablet PO SCH ×2 (08:55→21:17)
[2020-09-04] MEDS: risperiDONE 1 MG TAB PO SCH ×2 (08:55→21:17)
[2020-09-04] MEDS: VANCOMYCIN 1.25 GM/250 ML BAG 1.25 GM in Premix Bag 1 BAG IVPB SCH ×2 (08:56→21:19)
[2020-09-04] MEDS: Bisacodyl 10 MG SUPP PR SCH (09:37)
[2020-09-04] MEDS: Polyethylene Glycol 3350 17 GM Packet PO SCH (09:37)
[2020-09-04] MEDS: Senokot S 8.6-50 MG TAB PO SCH ×2 (09:37→21:30)
[2020-09-04] MEDS ORDERED: Nystatin Powder 15 GM BOT TOP PRN (11:42)
[2020-09-04] MEDS ORDERED: Enoxaparin Sodium 80 MG/0.8 ML SYRINGE SC SCH (12:45)
[2020-09-04 13:07] LABS: INR-International Normal Ratio 1.2; PTT 37.1 sec (22.9-36.1); Prothrombin Time 15.8 sec (12.0-14.7)
[2020-09-04] MEDS: Warfarin Sodium 5 MG TAB PO SCH (17:13)
[2020-09-04] MEDS: Melatonin 3 MG TAB PO SCH (21:17)
[2020-09-04] MEDS: Montelukast Sodium 10 mg Tablet PO SCH (21:18)
[2020-09-04] MEDS: Enoxaparin Sodium 80 MG/0.8 ML SYRINGE SC SCH (21:19)
[2020-09-05 05:29] LABS: Anion Gap 8 mmol/L (10-20); BUN (Urea Nitrogen) 10 mg/dL (9.8-20.1); Calc. Creatinine Clearance 114 mL/min (70-130); Calcium 7.9 mg/dL (7.8-10.44); Carbon Dioxide 24 mmol/L (23-31); Chloride 107 mmol/L (98-107); Glucose 85 mg/dL (80-115); Magnesium 1.9 mg/dL (1.6-2.6); Potassium 3.3 mmol/L (3.5-5.1); Sodium 136 mmol/L (136-145)
[2020-09-05 05:31] LABS: Band 3 % (5-11); Hemoglobin 10.1 g/dL (12.0-16.0); Lymphocytes 15 % (21-51); MDiff Complete? YES; Mean Corpuscular HGB CONC 32.1 g/dL (32.0-36.0); Mean Corpuscular Hemoglobin 29.3 pg (27.0-31.0); Mean Corpuscular Volume 91.2 fL (78.0-98.0); Mean Platelet Volume 7.4 fL (7.4-10.4); Metamyelocyte 1 % (0-0); Monocytes 9 % (0-10); Neutrophil 72 % (42-75); Platelet Count 100 thou/uL (130-400); Platelet Morphology Comment Appears Decreased; Red Blood Cell (RBC) Count 3.47 mill/uL (4.20-5.40); White Blood Cell (WBC) Count 2.7 thou/uL (4.8-10.8)
[2020-09-05] MEDS: Cefepime 1 GM in Sodium Chloride 0.9% 100 ML IVPB SCH ×2 (05:35→17:26)
[2020-09-05 08:44] LABS: Vancomycin, Trough 18.1 ug/mL
[2020-09-05] MEDS: Ferrous Sulfate 325 MG TAB PO SCH (08:47)
[2020-09-05] MEDS: risperiDONE 1 MG TAB PO SCH ×2 (08:47→21:11)
[2020-09-05] MEDS: Folic Acid 1 MG TAB PO SCH (08:47)
[2020-09-05] MEDS: levETIRAcetam 500 MG TAB PO SCH ×2 (08:47→21:11)
[2020-09-05] MEDS: Ascorbic Acid 500 mg Chewable Tablet PO SCH ×2 (08:47→21:11)
[2020-09-05] MEDS: Oxybutynin ER 5 MG TAB PO SCH (08:47)
[2020-09-05] MEDS: Aspirin 81 mg Enteric Coated Tablet PO SCH (08:47)
[2020-09-05] MEDS: Metoprolol Tartrate 25 MG TAB PO SCH ×2 (08:48→23:40)
[2020-09-05] MEDS: Enoxaparin Sodium 80 MG/0.8 ML SYRINGE SC SCH ×2 (08:48→20:57)
[2020-09-05] MEDS: Bisacodyl 10 MG SUPP PR SCH (08:49)
[2020-09-05] MEDS: Polyethylene Glycol 3350 17 GM Packet PO SCH (08:49)
[2020-09-05] MEDS: VANCOMYCIN 1.25 GM/250 ML BAG 1.25 GM in Premix Bag 1 BAG IVPB SCH ×2 (08:49→21:11)
[2020-09-05] MEDS: Senokot S 8.6-50 MG TAB PO SCH ×2 (08:51→21:11)
[2020-09-05] MEDS ORDERED: Iopamidol-370 76% 500 ML 1 ML ONE (11:13)
[2020-09-05] MEDS ORDERED: Sodium Chloride 0.9% 1,000 ML IV SCH (12:45)
[2020-09-05] MEDS: Warfarin Sodium 5 MG TAB PO SCH (17:25)
[2020-09-05] MEDS: Acetaminophen 325 MG TAB PO PRN (20:57)
[2020-09-05] MEDS: Dronedarone HCl 400 MG TAB PO SCH (21:10)
[2020-09-05] MEDS: Melatonin 3 MG TAB PO SCH (21:11)
[2020-09-05] MEDS: Montelukast Sodium 10 mg Tablet PO SCH (21:11)
[2020-09-06] MEDS: Cefepime 1 GM in Sodium Chloride 0.9% 100 ML IVPB SCH (06:40)
[2020-09-06] MEDS ORDERED: Lidocaine 1% (PF) 30 ML VIAL ONE (08:00)
[2020-09-06 08:09] LABS: INR-International Normal Ratio 1.7; PTT 56.7 sec (22.9-36.1); Prothrombin Time 20.7 sec (12.0-14.7)
[2020-09-06] MEDS: Bisacodyl 10 MG SUPP PR SCH (08:09)
[2020-09-06] MEDS: Polyethylene Glycol 3350 17 GM Packet PO SCH (08:09)
[2020-09-06] MEDS: Senokot S 8.6-50 MG TAB PO SCH ×2 (08:10→19:52)
[2020-09-06 08:20] LABS: Anion Gap 11 mmol/L (10-20); BUN (Urea Nitrogen) 8 mg/dL (9.8-20.1); Calc. Creatinine Clearance 112 mL/min (70-130); Carbon Dioxide 23 mmol/L (23-31); Chloride 108 mmol/L (98-107); Glucose 74 mg/dL (80-115); Magnesium 1.8 mg/dL (1.6-2.6); Potassium 3.2 mmol/L (3.5-5.1); Sodium 139 mmol/L (136-145)
[2020-09-06 08:31] LABS: Hemoglobin 10.8 g/dL (12.0-16.0); Mean Corpuscular HGB CONC 32.2 g/dL (32.0-36.0); Mean Corpuscular Hemoglobin 29.6 pg (27.0-31.0); Mean Platelet Volume 7.7 fL (7.4-10.4); Platelet Count 105 thou/uL (130-400); RBC Distribution Width 13.1 % (11.5-14.5); Red Blood Cell (RBC) Count 3.65 mill/uL (4.20-5.40); White Blood Cell (WBC) Count 2.3 thou/uL (4.8-10.8)
[2020-09-06] MEDS ORDERED: Metoprolol Tartrate 5 MG/5 ML VIAL ONE (08:58)
[2020-09-06] MEDS ORDERED: Enoxaparin Sodium 30 MG/0.3 ML SYRINGE SC SCH (09:00)
[2020-09-06 09:58] LABS: Band 12 % (5-11); Lymphocytes 34 % (21-51); MDiff Complete? YES; Monocytes 7 % (0-10); Neutrophil 47 % (42-75); Ovalocytes SLIGHT = 2-5 cells (100X) (0-1/hpf); Platelet Morphology Comment Appears Decreased; Polychromasia SLIGHT = 2-3 cells (100X) (0-2/hpf)
[2020-09-06] MEDS: VANCOMYCIN 1.25 GM/250 ML BAG 1.25 GM in Premix Bag 1 BAG IVPB SCH (10:26)
[2020-09-06] MEDS: risperiDONE 1 MG TAB PO SCH ×2 (10:33→19:52)
[2020-09-06] MEDS: Oxybutynin ER 5 MG TAB PO SCH (10:33)
[2020-09-06] MEDS: Folic Acid 1 MG TAB PO SCH (10:33)
[2020-09-06] MEDS: Benztropine 1 MG TAB PO SCH (10:33)
[2020-09-06] MEDS: Metoprolol Tartrate 25 MG TAB PO SCH ×2 (10:34→19:51)
[2020-09-06] MEDS: Dronedarone HCl 400 MG TAB PO SCH ×2 (10:34→19:52)
[2020-09-06] MEDS: Ferrous Sulfate 325 MG TAB PO SCH (10:35)
[2020-09-06] MEDS: levETIRAcetam 500 MG TAB PO SCH ×2 (10:35→19:51)
[2020-09-06] MEDS: Ascorbic Acid 500 mg Chewable Tablet PO SCH ×2 (10:35→19:51)
[2020-09-06] MEDS: Aspirin 81 mg Enteric Coated Tablet PO SCH (10:35)
[2020-09-06] MEDS ORDERED: Iopamidol 370 76% 50 ML VIAL FS ONE (10:45)
[2020-09-06] MEDS: Warfarin Sodium 5 MG TAB PO SCH (16:18)
[2020-09-06] MEDS: Cipro 250 MG TAB PO SCH (19:51)
[2020-09-06] MEDS: Melatonin 3 MG TAB PO SCH (19:52)
[2020-09-06] MEDS: Montelukast Sodium 10 mg Tablet PO SCH (19:52)
[2020-09-06] MEDS ORDERED: Enoxaparin Sodium 60 MG/0.6 ML SYRINGE SC SCH (21:00)
[2020-09-07] MEDS ORDERED: Metoprolol Tartrate 5 MG/5 ML VIAL IVP SCH (01:06)
[2020-09-07 05:32] LABS: INR-International Normal Ratio 2.5; PTT 58.6 sec (22.9-36.1); Prothrombin Time 27.8 sec (12.0-14.7)
[2020-09-07] MEDS: Cipro 250 MG TAB PO SCH ×2 (05:50→22:39)
[2020-09-07 07:55] LABS: #Lymphocytes 0.3 thou/uL (1.20-3.40); #Monocytes 0.3 thou/uL (0.11-0.59); #Neutrophils 1.4 thou/uL (1.40-6.50); %Eosinophils 0.1 % (0.0-10.0); %Lymphocytes 16.8 % (21.0-51.0); %Monocytes 12.7 % (0.0-10.0); %Neutrophils 70.3 % (42.0-75.0); Hemoglobin 9.8 g/dL (12.0-16.0); Mean Corpuscular HGB CONC 31.1 g/dL (32.0-36.0); Mean Corpuscular Hemoglobin 28.4 pg (27.0-31.0); Mean Corpuscular Volume 91.3 fL (78.0-98.0); Platelet Count 91 thou/uL (130-400); RBC Distribution Width 13.1 % (11.5-14.5); Red Blood Cell (RBC) Count 3.45 mill/uL (4.20-5.40); White Blood Cell (WBC) Count 1.9 thou/uL (4.8-10.8)
[2020-09-07 08:07] LABS: Anion Gap 8 mmol/L (10-20); BUN (Urea Nitrogen) 6 mg/dL (9.8-20.1); Calc. Creatinine Clearance 123 mL/min (70-130); Calcium 7.6 mg/dL (7.8-10.44); Carbon Dioxide 23 mmol/L (23-31); Chloride 110 mmol/L (98-107); Glucose 74 mg/dL (80-115); Sodium 138 mmol/L (136-145)
[2020-09-07 08:21] LABS: Free T4 (Free Thyroxine) 0.92 ng/dL (0.70-1.48); Thyroid Stimulating Hormone 0.7995 uIU/mL (0.35-4.94)
[2020-09-07] MEDS: Bisacodyl 10 MG SUPP PR SCH (08:52)
[2020-09-07] MEDS: Ferrous Sulfate 325 MG TAB PO SCH (08:53)
[2020-09-07] MEDS: Aspirin 81 mg Enteric Coated Tablet PO SCH (08:53)
[2020-09-07] MEDS: Ascorbic Acid 500 mg Chewable Tablet PO SCH ×2 (08:53→21:22)
[2020-09-07] MEDS: Benztropine 1 MG TAB PO SCH (08:53)
[2020-09-07] MEDS: Polyethylene Glycol 3350 17 GM Packet PO SCH (08:53)
[2020-09-07] MEDS: levETIRAcetam 500 MG TAB PO SCH ×2 (08:54→21:23)
[2020-09-07] MEDS: Oxybutynin ER 5 MG TAB PO SCH (08:54)
[2020-09-07] MEDS: Folic Acid 1 MG TAB PO SCH (08:54)
[2020-09-07] MEDS: risperiDONE 1 MG TAB PO SCH ×2 (08:54→21:23)
[2020-09-07] MEDS: Senokot S 8.6-50 MG TAB PO SCH ×2 (08:54→21:23)
[2020-09-07] MEDS: Dronedarone HCl 400 MG TAB PO SCH ×2 (08:54→21:22)
[2020-09-07] MEDS: Midodrine HCl 5 MG TAB PO SCH ×2 (15:33→21:24)
[2020-09-07] MEDS: Warfarin Sodium 5 MG TAB PO SCH (15:33)
[2020-09-07] MEDS: Montelukast Sodium 10 mg Tablet PO SCH (21:23)
[2020-09-07] MEDS: Melatonin 3 MG TAB PO SCH (21:24)
[2020-09-08 04:52] LABS: INR-International Normal Ratio 2.9; Prothrombin Time 30.6 sec (12.0-14.7)
[2020-09-08 04:53] LABS: PTT 62.4 sec (22.9-36.1)
[2020-09-08] MEDS: Cipro 250 MG TAB PO SCH (05:02)
[2020-09-08] MEDS: Acetaminophen 325 MG TAB PO PRN (09:19)
[2020-09-08] MEDS: Dronedarone HCl 400 MG TAB PO SCH ×2 (09:21→20:42)
[2020-09-08] MEDS: Aspirin 81 mg Enteric Coated Tablet PO SCH (09:21)
[2020-09-08] MEDS: levETIRAcetam 500 MG TAB PO SCH ×2 (09:21→20:41)
[2020-09-08] MEDS: Benztropine 1 MG TAB PO SCH (09:21)
[2020-09-08] MEDS: Folic Acid 1 MG TAB PO SCH (09:21)
[2020-09-08] MEDS: Midodrine HCl 5 MG TAB PO SCH ×3 (09:21→20:42)
[2020-09-08] MEDS: Ferrous Sulfate 325 MG TAB PO SCH (09:21)
[2020-09-08] MEDS: Ascorbic Acid 500 mg Chewable Tablet PO SCH ×2 (09:22→20:41)
[2020-09-08] MEDS: Oxybutynin ER 5 MG TAB PO SCH (09:22)
[2020-09-08] MEDS: risperiDONE 1 MG TAB PO SCH ×2 (09:22→20:43)
[2020-09-08] MEDS: Senokot S 8.6-50 MG TAB PO SCH ×2 (09:23→20:42)
[2020-09-08] MEDS: Polyethylene Glycol 3350 17 GM Packet PO SCH (09:23)
[2020-09-08] MEDS: Bisacodyl 10 MG SUPP PR SCH (09:23)
[2020-09-08] MEDS ORDERED: risperiDONE 1 MG TAB PO SCH (16:15)
[2020-09-08] MEDS ORDERED: Warfarin Sodium 2 MG TAB PO SCH (17:00)
[2020-09-08] MEDS: Melatonin 3 MG TAB PO SCH (20:42)
[2020-09-08] MEDS: Montelukast Sodium 10 mg Tablet PO SCH (20:42)
[2020-09-09 05:01] LABS: INR-International Normal Ratio 3.8; Prothrombin Time 37.9 sec (12.0-14.7)
[2020-09-09 05:02] LABS: PTT 70.7 sec (22.9-36.1)
[2020-09-09] MEDS: Senokot S 8.6-50 MG TAB PO SCH ×2 (09:25→20:28)
[2020-09-09] MEDS: Benztropine 1 MG TAB PO SCH (09:25)
[2020-09-09] MEDS: Oxybutynin ER 5 MG TAB PO SCH (09:25)
[2020-09-09] MEDS: risperiDONE 1 MG TAB PO SCH ×2 (09:25→20:13)
[2020-09-09] MEDS: Aspirin 81 mg Enteric Coated Tablet PO SCH (09:25)
[2020-09-09] MEDS: Polyethylene Glycol 3350 17 GM Packet PO SCH (09:25)
[2020-09-09] MEDS: Folic Acid 1 MG TAB PO SCH (09:25)
[2020-09-09] MEDS: Ascorbic Acid 500 mg Chewable Tablet PO SCH ×2 (09:25→20:13)
[2020-09-09] MEDS: levETIRAcetam 500 MG TAB PO SCH ×2 (09:25→20:19)
[2020-09-09] MEDS: Ferrous Sulfate 325 MG TAB PO SCH (09:26)
[2020-09-09] MEDS: Bisacodyl 10 MG SUPP PR SCH (09:26)
[2020-09-09] MEDS: Dronedarone HCl 400 MG TAB PO SCH (09:26)
[2020-09-09] MEDS: Acetaminophen 325 MG TAB PO PRN (09:26)
[2020-09-09] MEDS: Midodrine HCl 5 MG TAB PO SCH ×3 (09:26→20:25)
[2020-09-09] MEDS ORDERED: Warfarin Sodium 2 MG TAB PO SCH (17:00)
[2020-09-09] MEDS: Melatonin 3 MG TAB PO SCH (20:19)
[2020-09-09] MEDS: Amiodarone 200 MG TAB PO SCH (20:25)
[2020-09-09] MEDS: Montelukast Sodium 10 mg Tablet PO SCH (20:26)
[2020-09-10 05:09] LABS: Prothrombin Time 42.2 sec (12.0-14.7)
[2020-09-10 05:10] LABS: PTT 78.4 sec (22.9-36.1)
[2020-09-10 06:26] LABS: INR-International Normal Ratio 4.3
[2020-09-10] MEDS ORDERED: Potassium Chloride 20 MEQ in Premix Bag 1 BAG IVPB SCH (07:45)
[2020-09-10] MEDS: Benztropine 1 MG TAB PO SCH (08:19)
[2020-09-10] MEDS: Oxybutynin ER 5 MG TAB PO SCH (08:19)
[2020-09-10] MEDS: Folic Acid 1 MG TAB PO SCH (08:20)
[2020-09-10] MEDS: Senokot S 8.6-50 MG TAB PO SCH ×2 (08:20→21:26)
[2020-09-10] MEDS: Potassium Chloride 20 MEQ TAB PO SCH ×3 (08:20→16:11)
[2020-09-10] MEDS: Amiodarone 200 MG TAB PO SCH ×3 (08:20→19:44)
[2020-09-10] MEDS: Aspirin 81 mg Enteric Coated Tablet PO SCH (08:20)
[2020-09-10] MEDS: Ferrous Sulfate 325 MG TAB PO SCH (08:20)
[2020-09-10] MEDS: Ascorbic Acid 500 mg Chewable Tablet PO SCH ×2 (08:20→21:25)
[2020-09-10] MEDS: risperiDONE 1 MG TAB PO SCH ×2 (08:20→21:26)
[2020-09-10] MEDS: Midodrine HCl 5 MG TAB PO SCH ×3 (08:21→21:26)
[2020-09-10] MEDS: levETIRAcetam 500 MG TAB PO SCH ×2 (08:21→21:26)
[2020-09-10] MEDS: Polyethylene Glycol 3350 17 GM Packet PO SCH (08:22)
[2020-09-10] MEDS: Bisacodyl 10 MG SUPP PR SCH (08:22)
[2020-09-10] MEDS ORDERED: Warfarin Sodium 3 MG TAB PO SCH (17:00)
[2020-09-10] MEDS: Montelukast Sodium 10 mg Tablet PO SCH (21:25)
[2020-09-10] MEDS: Melatonin 3 MG TAB PO SCH (21:26)
[2020-09-11 04:29] LABS: #Lymphocytes 0.5 thou/uL (1.20-3.40); #Monocytes 0.3 thou/uL (0.11-0.59); #Neutrophils 1.6 thou/uL (1.40-6.50); %Lymphocytes 20.2 % (21.0-51.0); %Monocytes 13.2 % (0.0-10.0); %Neutrophils 65.6 % (42.0-75.0); Hemoglobin 10.3 g/dL (12.0-16.0); Mean Corpuscular HGB CONC 33.8 g/dL (32.0-36.0); Mean Corpuscular Hemoglobin 30.9 pg (27.0-31.0); Mean Corpuscular Volume 91.4 fL (78.0-98.0); Mean Platelet Volume 7.7 fL (7.4-10.4); Platelet Count 104 thou/uL (130-400); RBC Distribution Width 13.9 % (11.5-14.5); Red Blood Cell (RBC) Count 3.33 mill/uL (4.20-5.40); White Blood Cell (WBC) Count 2.5 thou/uL (4.8-10.8)
[2020-09-11 04:40] LABS: Anion Gap 9 mmol/L (10-20); BUN (Urea Nitrogen) 7 mg/dL (9.8-20.1); Calc. Creatinine Clearance 128 mL/min (70-130); Calcium 7.8 mg/dL (7.8-10.44); Carbon Dioxide 27 mmol/L (23-31); Chloride 110 mmol/L (98-107); Glucose 84 mg/dL (80-115); Magnesium 1.6 mg/dL (1.6-2.6); Phosphorus 2.3 mg/dL (2.3-4.7); Sodium 142 mmol/L (136-145)
[2020-09-11 04:46] LABS: Prothrombin Time 40.3 sec (12.0-14.7)
[2020-09-11 04:47] LABS: PTT 81.1 sec (22.9-36.1)
[2020-09-11] MEDS ORDERED: Magnesium Sulfate 4 GM in Sodium Chloride 0.9% 250 ML 250 ML IVPB SCH (07:15)
[2020-09-11] MEDS: Senokot S 8.6-50 MG TAB PO SCH ×2 (08:51→21:15)
[2020-09-11] MEDS: Oxybutynin ER 5 MG TAB PO SCH (08:51)
[2020-09-11] MEDS: Benztropine 1 MG TAB PO SCH (08:51)
[2020-09-11] MEDS: Folic Acid 1 MG TAB PO SCH (08:52)
[2020-09-11] MEDS: Potassium Chloride 20 MEQ TAB PO SCH ×3 (08:52→16:26)
[2020-09-11] MEDS: risperiDONE 1 MG TAB PO SCH ×2 (08:52→21:07)
[2020-09-11] MEDS: levETIRAcetam 500 MG TAB PO SCH ×2 (08:52→21:08)
[2020-09-11] MEDS: Aspirin 81 mg Enteric Coated Tablet PO SCH (08:52)
[2020-09-11] MEDS: Midodrine HCl 5 MG TAB PO SCH ×3 (08:52→21:08)
[2020-09-11] MEDS: Polyethylene Glycol 3350 17 GM Packet PO SCH (08:52)
[2020-09-11] MEDS: Ferrous Sulfate 325 MG TAB PO SCH (08:52)
[2020-09-11] MEDS: Amiodarone 200 MG TAB PO SCH ×3 (08:52→21:07)
[2020-09-11] MEDS: Ascorbic Acid 500 mg Chewable Tablet PO SCH ×2 (08:52→21:08)
[2020-09-11] MEDS: Bisacodyl 10 MG SUPP PR SCH (08:53)
[2020-09-11] MEDS: D5 1/2 NS w/20 mEq KCL 1,000 ML IV SCH (18:14)
[2020-09-11] MEDS: Melatonin 3 MG TAB PO SCH (21:07)
[2020-09-11] MEDS: Montelukast Sodium 10 mg Tablet PO SCH (21:07)
[2020-09-12 07:16] LABS: #Lymphocytes 0.5 thou/uL (1.20-3.40); #Monocytes 0.3 thou/uL (0.11-0.59); #Neutrophils 1.6 thou/uL (1.40-6.50); %Basophils 0.4 % (0.0-1.0); %Eosinophils 0.1 % (0.0-10.0); %Lymphocytes 20.9 % (21.0-51.0); %Monocytes 13.8 % (0.0-10.0); %Neutrophils 64.7 % (42.0-75.0); Hemoglobin 11.1 g/dL (12.0-16.0); Mean Corpuscular HGB CONC 33.2 g/dL (32.0-36.0); Mean Corpuscular Hemoglobin 30.7 pg (27.0-31.0); Mean Corpuscular Volume 92.5 fL (78.0-98.0); Mean Platelet Volume 7.7 fL (7.4-10.4); Platelet Count 114 thou/uL (130-400); RBC Distribution Width 14.1 % (11.5-14.5); White Blood Cell (WBC) Count 2.4 thou/uL (4.8-10.8)
[2020-09-12 07:23] LABS: Anion Gap 9 mmol/L (10-20); BUN (Urea Nitrogen) 11 mg/dL (9.8-20.1); Calc. Creatinine Clearance 123 mL/min (70-130); Carbon Dioxide 26 mmol/L (23-31); Chloride 110 mmol/L (98-107); Glucose 77 mg/dL (80-115); Potassium 4.8 mmol/L (3.5-5.1); Sodium 140 mmol/L (136-145)
[2020-09-12 08:48] LABS: Prothrombin Time 41.7 sec (12.0-14.7)
[2020-09-12 08:49] LABS: PTT 91.7 sec (22.9-36.1)
[2020-09-12] MEDS: Folic Acid 1 MG TAB PO SCH (08:53)
[2020-09-12] MEDS: Senokot S 8.6-50 MG TAB PO SCH ×2 (08:53→20:29)
[2020-09-12] MEDS: risperiDONE 1 MG TAB PO SCH ×2 (08:53→20:28)
[2020-09-12] MEDS: Oxybutynin ER 5 MG TAB PO SCH (08:53)
[2020-09-12] MEDS: Amiodarone 200 MG TAB PO SCH ×3 (08:54→20:29)
[2020-09-12] MEDS: levETIRAcetam 500 MG TAB PO SCH ×2 (08:54→20:28)
[2020-09-12] MEDS: Benztropine 1 MG TAB PO SCH (08:54)
[2020-09-12] MEDS: Ascorbic Acid 500 mg Chewable Tablet PO SCH ×2 (08:54→20:28)
[2020-09-12] MEDS: Ferrous Sulfate 325 MG TAB PO SCH (08:54)
[2020-09-12] MEDS: Aspirin 81 mg Enteric Coated Tablet PO SCH (08:54)
[2020-09-12] MEDS: Midodrine HCl 5 MG TAB PO SCH (08:54)
[2020-09-12] MEDS: Polyethylene Glycol 3350 17 GM Packet PO SCH (08:55)
[2020-09-12] MEDS: Bisacodyl 10 MG SUPP PR SCH (08:55)
[2020-09-12 08:58] LABS: INR-International Normal Ratio 4.2
[2020-09-12] MEDS: Dextrose 5 %-0.45 % NaCl 1,000 ML IV SCH (15:23)
[2020-09-12] MEDS: D5 1/2 NS w/20 mEq KCL 1,000 ML IV SCH (16:14)
[2020-09-12] MEDS: Montelukast Sodium 10 mg Tablet PO SCH (20:28)
[2020-09-12] MEDS: Melatonin 3 MG TAB PO SCH (20:28)
[2020-09-13] MEDS: Melatonin 3 MG TAB PO SCH ×2 (04:38→21:27)
[2020-09-13] MEDS: Ascorbic Acid 500 mg Chewable Tablet PO SCH ×3 (04:38→21:26)
[2020-09-13] MEDS: levETIRAcetam 500 MG TAB PO SCH ×3 (04:38→21:18)
[2020-09-13] MEDS: Montelukast Sodium 10 mg Tablet PO SCH ×2 (04:39→21:27)
[2020-09-13 04:44] LABS: #Lymphocytes 0.8 thou/uL (1.20-3.40); #Monocytes 0.4 thou/uL (0.11-0.59); #Neutrophils 2.3 thou/uL (1.40-6.50); %Basophils 0.2 % (0.0-1.0); %Eosinophils 0.2 % (0.0-10.0); %Lymphocytes 22.4 % (21.0-51.0); %Neutrophils 66.3 % (42.0-75.0); Hemoglobin 11.9 g/dL (12.0-16.0); Mean Corpuscular HGB CONC 31.7 g/dL (32.0-36.0); Mean Corpuscular Hemoglobin 29.3 pg (27.0-31.0); Mean Corpuscular Volume 92.5 fL (78.0-98.0); Mean Platelet Volume 7.5 fL (7.4-10.4); Platelet Count 123 thou/uL (130-400); RBC Distribution Width 14.1 % (11.5-14.5); Red Blood Cell (RBC) Count 4.07 mill/uL (4.20-5.40); White Blood Cell (WBC) Count 3.4 thou/uL (4.8-10.8)
[2020-09-13 04:52] LABS: PTT 77.9 sec (22.9-36.1); Prothrombin Time 40.1 sec (12.0-14.7)
[2020-09-13] MEDS ORDERED: Sodium Chloride 0.9% 500 ML IVPB SCH (05:00)
[2020-09-13] MEDS ORDERED: Metoprolol Tartrate 5 MG/5 ML VIAL IVP SCH ×2 (05:00→23:59)
[2020-09-13 05:06] LABS: Anion Gap 9 mmol/L (10-20); BUN (Urea Nitrogen) 10 mg/dL (9.8-20.1); Calc. Creatinine Clearance 121 mL/min (70-130); Calcium 8.4 mg/dL (7.8-10.44); Carbon Dioxide 24 mmol/L (23-31); Chloride 110 mmol/L (98-107); Glucose 81 mg/dL (80-115); Potassium 4.4 mmol/L (3.5-5.1); Sodium 139 mmol/L (136-145)
[2020-09-13] MEDS: risperiDONE 1 MG TAB PO SCH (08:59)
[2020-09-13] MEDS: Senokot S 8.6-50 MG TAB PO SCH ×2 (08:59→21:27)
[2020-09-13] MEDS: Amiodarone 200 MG TAB PO SCH ×3 (08:59→21:19)
[2020-09-13] MEDS: Oxybutynin ER 5 MG TAB PO SCH (08:59)
[2020-09-13] MEDS: Ferrous Sulfate 325 MG TAB PO SCH (08:59)
[2020-09-13] MEDS: Aspirin 81 mg Enteric Coated Tablet PO SCH (08:59)
[2020-09-13] MEDS: Folic Acid 1 MG TAB PO SCH (08:59)
[2020-09-13] MEDS: Bisacodyl 10 MG SUPP PR SCH (09:00)
[2020-09-13] MEDS: Polyethylene Glycol 3350 17 GM Packet PO SCH (09:00)
[2020-09-13] MEDS: Dextrose 5 %-0.45 % NaCl 1,000 ML IV SCH (11:07)
[2020-09-13] MEDS: Zinc Sulfate 220 MG CAP PO SCH (21:27)
[2020-09-13] MEDS: Saccharomyces boulardii 250 MG CAP PO SCH (21:27)
[2020-09-13] MEDS: Cyanocobalamin (Vitamin B-12) 1,000 MCG TAB PO SCH (21:27)
[2020-09-14] MEDS: Dextrose 5 %-0.45 % NaCl 1,000 ML IV SCH (06:06)
[2020-09-14] MEDS: Amiodarone 200 MG TAB PO SCH ×3 (09:57→21:52)
[2020-09-14] MEDS: Ascorbic Acid 500 mg Chewable Tablet PO SCH ×2 (09:58→21:50)
[2020-09-14] MEDS: Aspirin 81 mg Enteric Coated Tablet PO SCH (09:58)
[2020-09-14] MEDS: Ferrous Sulfate 325 MG TAB PO SCH (09:58)
[2020-09-14] MEDS: Polyethylene Glycol 3350 17 GM Packet PO SCH (09:59)
[2020-09-14] MEDS: Bisacodyl 10 MG SUPP PR SCH (09:59)
[2020-09-14] MEDS: Folic Acid 1 MG TAB PO SCH (09:59)
[2020-09-14] MEDS: Senokot S 8.6-50 MG TAB PO SCH ×2 (09:59→21:51)
[2020-09-14] MEDS: Oxybutynin ER 5 MG TAB PO SCH (10:00)
[2020-09-14] MEDS: risperiDONE 1 MG TAB PO SCH (10:02)
[2020-09-14] MEDS: levETIRAcetam 500 MG TAB PO SCH ×2 (10:02→21:52)
[2020-09-14 12:15] LABS: #Lymphocytes 0.3 thou/uL (1.20-3.40); #Monocytes 0.2 thou/uL (0.11-0.59); %Eosinophils 0.1 % (0.0-10.0); %Lymphocytes 9.4 % (21.0-51.0); %Monocytes 5.8 % (0.0-10.0); %Neutrophils 84.8 % (42.0-75.0); Hemoglobin 11.4 g/dL (12.0-16.0); Mean Corpuscular HGB CONC 33.3 g/dL (32.0-36.0); Mean Corpuscular Hemoglobin 30.7 pg (27.0-31.0); Mean Corpuscular Volume 92.1 fL (78.0-98.0); Mean Platelet Volume 7.2 fL (7.4-10.4); Platelet Count 137 thou/uL (130-400); Red Blood Cell (RBC) Count 3.71 mill/uL (4.20-5.40); White Blood Cell (WBC) Count 3.5 thou/uL (4.8-10.8)
[2020-09-14 12:33] LABS: Prothrombin Time 40.4 sec (12.0-14.7)
[2020-09-14 12:34] LABS: PTT 84.8 sec (22.9-36.1); Phosphorus 3.1 mg/dL (2.3-4.7)
[2020-09-14 12:36] LABS: Anion Gap 8 mmol/L (10-20); BUN (Urea Nitrogen) 8 mg/dL (9.8-20.1); Calc. Creatinine Clearance 111 mL/min (70-130); Calcium 8.3 mg/dL (7.8-10.44); Carbon Dioxide 30 mmol/L (23-31); Chloride 106 mmol/L (98-107); Glucose 95 mg/dL (80-115); Magnesium 1.7 mg/dL (1.6-2.6); Potassium 4.2 mmol/L (3.5-5.1); Sodium 140 mmol/L (136-145)
[2020-09-14 12:38] LABS: INR-International Normal Ratio 4.1
[2020-09-14] MEDS ORDERED: Magnesium 2 GM/50 ML 2 GM in Premix Bag 1 BAG IVPB SCH (13:30)
[2020-09-14] MEDS ORDERED: Lorazepam 2 MG/ML VIAL SLOW IVP PRN (14:55)
[2020-09-14] MEDS ORDERED: OLANZapine 2.5 MG TAB PO SCH (15:00)
[2020-09-14] MEDS ORDERED: predniSONE 50 MG TAB ONE (20:48)
[2020-09-14] MEDS: Cyanocobalamin (Vitamin B-12) 1,000 MCG TAB PO SCH (21:50)
[2020-09-14] MEDS: Zinc Sulfate 220 MG CAP PO SCH (21:50)
[2020-09-14] MEDS: Famotidine 20 MG TAB PO SCH (21:50)
[2020-09-14] MEDS: Saccharomyces boulardii 250 MG CAP PO SCH (21:51)
[2020-09-14] MEDS: Montelukast Sodium 10 mg Tablet PO SCH (21:51)
[2020-09-14] MEDS: Melatonin 3 MG TAB PO SCH (21:51)
[2020-09-15 04:51] LABS: #Lymphocytes 0.5 thou/uL (1.20-3.40); #Monocytes 0.2 thou/uL (0.11-0.59); #Neutrophils 2.5 thou/uL (1.40-6.50); %Basophils 0.3 % (0.0-1.0); %Eosinophils 0.1 % (0.0-10.0); %Lymphocytes 15.6 % (21.0-51.0); %Neutrophils 76.9 % (42.0-75.0); Hemoglobin 11.4 g/dL (12.0-16.0); Mean Corpuscular HGB CONC 32.4 g/dL (32.0-36.0); Mean Corpuscular Hemoglobin 30.1 pg (27.0-31.0); Mean Corpuscular Volume 93.1 fL (78.0-98.0); Mean Platelet Volume 7.6 fL (7.4-10.4); Platelet Count 132 thou/uL (130-400); RBC Distribution Width 14.2 % (11.5-14.5); Red Blood Cell (RBC) Count 3.77 mill/uL (4.20-5.40); White Blood Cell (WBC) Count 3.2 thou/uL (4.8-10.8)
[2020-09-15 05:01] LABS: INR-International Normal Ratio 2.7; Prothrombin Time 29.1 sec (12.0-14.7)
[2020-09-15 05:02] LABS: PTT 77.6 sec (22.9-36.1)
[2020-09-15 05:12] LABS: Anion Gap 11 mmol/L (10-20); BUN (Urea Nitrogen) 7 mg/dL (9.8-20.1); Calc. Creatinine Clearance 113 mL/min (70-130); Calcium 8.4 mg/dL (7.8-10.44); Carbon Dioxide 26 mmol/L (23-31); Chloride 108 mmol/L (98-107); Glucose 85 mg/dL (80-115); Potassium 3.9 mmol/L (3.5-5.1); Sodium 141 mmol/L (136-145)
[2020-09-15] MEDS: OLANZapine 2.5 MG TAB PO SCH (08:50)
[2020-09-15] MEDS: Senokot S 8.6-50 MG TAB PO SCH ×2 (08:50→20:47)
[2020-09-15] MEDS: levETIRAcetam 500 MG TAB PO SCH ×2 (08:51→20:48)
[2020-09-15] MEDS: Ferrous Sulfate 325 MG TAB PO SCH (08:51)
[2020-09-15] MEDS: Famotidine 20 MG TAB PO SCH ×2 (08:51→20:47)
[2020-09-15] MEDS: Polyethylene Glycol 3350 17 GM Packet PO SCH (08:51)
[2020-09-15] MEDS: Amiodarone 200 MG TAB PO SCH ×3 (08:51→20:47)
[2020-09-15] MEDS: Folic Acid 1 MG TAB PO SCH (08:51)
[2020-09-15] MEDS: Ascorbic Acid 500 mg Chewable Tablet PO SCH ×2 (08:51→20:47)
[2020-09-15] MEDS: Aspirin 81 mg Enteric Coated Tablet PO SCH (08:51)
[2020-09-15] MEDS: Oxybutynin ER 5 MG TAB PO SCH (08:51)
[2020-09-15] MEDS: Bisacodyl 10 MG SUPP PR SCH (09:01)
[2020-09-15] MEDS: Warfarin Sodium 2.5 MG TAB PO SCH (17:27)
[2020-09-15] MEDS: Cyanocobalamin (Vitamin B-12) 1,000 MCG TAB PO SCH (20:47)
[2020-09-15] MEDS: Melatonin 3 MG TAB PO SCH (20:47)
[2020-09-15] MEDS: Montelukast Sodium 10 mg Tablet PO SCH (20:48)
[2020-09-15] MEDS: Saccharomyces boulardii 250 MG CAP PO SCH (20:48)
[2020-09-15] MEDS: Zinc Sulfate 220 MG CAP PO SCH (20:48)
[2020-09-16 04:45] LABS: #Lymphocytes 0.4 thou/uL (1.20-3.40); #Monocytes 0.3 thou/uL (0.11-0.59); #Neutrophils 2.5 thou/uL (1.40-6.50); %Basophils 0.4 % (0.0-1.0); %Eosinophils 0.3 % (0.0-10.0); %Lymphocytes 12.4 % (21.0-51.0); %Monocytes 8.5 % (0.0-10.0); %Neutrophils 78.5 % (42.0-75.0); Hemoglobin 10.5 g/dL (12.0-16.0); Mean Corpuscular HGB CONC 32.8 g/dL (32.0-36.0); Mean Corpuscular Hemoglobin 30.6 pg (27.0-31.0); Mean Corpuscular Volume 93.1 fL (78.0-98.0); Mean Platelet Volume 7.3 fL (7.4-10.4); Platelet Count 135 thou/uL (130-400); RBC Distribution Width 14.4 % (11.5-14.5); Red Blood Cell (RBC) Count 3.44 mill/uL (4.20-5.40); White Blood Cell (WBC) Count 3.2 thou/uL (4.8-10.8)
[2020-09-16 04:55] LABS: PTT 43.9 sec (22.9-36.1); Prothrombin Time 23.5 sec (12.0-14.7)
[2020-09-16 05:08] LABS: Anion Gap 8 mmol/L (10-20); BUN (Urea Nitrogen) 6 mg/dL (9.8-20.1); Calc. Creatinine Clearance 106 mL/min (70-130); Calcium 8.5 mg/dL (7.8-10.44); Carbon Dioxide 29 mmol/L (23-31); Chloride 108 mmol/L (98-107); Glucose 84 mg/dL (80-115); Potassium 3.9 mmol/L (3.5-5.1); Sodium 141 mmol/L (136-145)
[2020-09-16] MEDS: Polyethylene Glycol 3350 17 GM Packet PO SCH (09:33)
[2020-09-16] MEDS: Folic Acid 1 MG TAB PO SCH (09:34)
[2020-09-16] MEDS: Oxybutynin ER 5 MG TAB PO SCH (09:34)
[2020-09-16] MEDS: OLANZapine 2.5 MG TAB PO SCH (09:34)
[2020-09-16] MEDS: Ferrous Sulfate 325 MG TAB PO SCH (09:34)
[2020-09-16] MEDS: Ascorbic Acid 500 mg Chewable Tablet PO SCH ×2 (09:34→20:27)
[2020-09-16] MEDS: Senokot S 8.6-50 MG TAB PO SCH ×2 (09:34→20:29)
[2020-09-16] MEDS: Famotidine 20 MG TAB PO SCH ×2 (09:34→20:40)
[2020-09-16] MEDS: levETIRAcetam 500 MG TAB PO SCH ×2 (09:34→20:27)
[2020-09-16] MEDS: Bisacodyl 10 MG SUPP PR SCH (09:35)
[2020-09-16] MEDS: Aspirin 81 mg Enteric Coated Tablet PO SCH (09:35)
[2020-09-16] MEDS: Amiodarone 200 MG TAB PO SCH ×3 (09:35→20:29)
[2020-09-16] MEDS: Warfarin Sodium 2.5 MG TAB PO SCH (16:25)
[2020-09-16] MEDS: Zinc Sulfate 220 MG CAP PO SCH (20:27)
[2020-09-16] MEDS: Melatonin 3 MG TAB PO SCH (20:29)
[2020-09-16] MEDS: Saccharomyces boulardii 250 MG CAP PO SCH (20:29)
[2020-09-16] MEDS: Montelukast Sodium 10 mg Tablet PO SCH (20:30)
[2020-09-16] MEDS: Cyanocobalamin (Vitamin B-12) 1,000 MCG TAB PO SCH (20:30)
[2020-09-17 05:12] LABS: #Lymphocytes 0.5 thou/uL (1.20-3.40); #Monocytes 0.3 thou/uL (0.11-0.59); #Neutrophils 2.3 thou/uL (1.40-6.50); %Eosinophils 0.1 % (0.0-10.0); %Monocytes 10.6 % (0.0-10.0); %Neutrophils 74.4 % (42.0-75.0); Hemoglobin 9.8 g/dL (12.0-16.0); Mean Corpuscular HGB CONC 30.9 g/dL (32.0-36.0); Mean Corpuscular Hemoglobin 28.6 pg (27.0-31.0); Mean Corpuscular Volume 92.6 fL (78.0-98.0); Mean Platelet Volume 7.1 fL (7.4-10.4); Platelet Count 129 thou/uL (130-400); RBC Distribution Width 14.6 % (11.5-14.5); Red Blood Cell (RBC) Count 3.42 mill/uL (4.20-5.40); White Blood Cell (WBC) Count 3.2 thou/uL (4.8-10.8)
[2020-09-17 05:21] LABS: INR-International Normal Ratio 2.2; PTT 54.9 sec (22.9-36.1); Prothrombin Time 24.9 sec (12.0-14.7)
[2020-09-17 05:35] LABS: Anion Gap 10 mmol/L (10-20); BUN (Urea Nitrogen) 4 mg/dL (9.8-20.1); Calc. Creatinine Clearance 115 mL/min (70-130); Carbon Dioxide 26 mmol/L (23-31); Chloride 110 mmol/L (98-107); Glucose 74 mg/dL (80-115); Potassium 3.9 mmol/L (3.5-5.1); Sodium 142 mmol/L (136-145)
[2020-09-17] MEDS: Folic Acid 1 MG TAB PO SCH (08:41)
[2020-09-17] MEDS: Famotidine 20 MG TAB PO SCH ×2 (08:41→21:49)
[2020-09-17] MEDS: Oxybutynin ER 5 MG TAB PO SCH (08:42)
[2020-09-17] MEDS: Polyethylene Glycol 3350 17 GM Packet PO SCH (08:42)
[2020-09-17] MEDS: Aspirin 81 mg Enteric Coated Tablet PO SCH (08:42)
[2020-09-17] MEDS: Amiodarone 200 MG TAB PO SCH ×3 (08:42→21:49)
[2020-09-17] MEDS: levETIRAcetam 500 MG TAB PO SCH ×2 (08:42→21:49)
[2020-09-17] MEDS: Ascorbic Acid 500 mg Chewable Tablet PO SCH ×2 (08:42→21:49)
[2020-09-17] MEDS: Senokot S 8.6-50 MG TAB PO SCH ×2 (08:42→21:49)
[2020-09-17] MEDS: Ferrous Sulfate 325 MG TAB PO SCH (08:42)
[2020-09-17] MEDS: OLANZapine 2.5 MG TAB PO SCH (08:42)
[2020-09-17] MEDS: Bisacodyl 10 MG SUPP PR SCH (10:15)
[2020-09-17] MEDS: Warfarin Sodium 2.5 MG TAB PO SCH (16:02)
[2020-09-17] MEDS: Zinc Sulfate 220 MG CAP PO SCH (21:48)
[2020-09-17] MEDS: Montelukast Sodium 10 mg Tablet PO SCH (21:48)
[2020-09-17] MEDS: Saccharomyces boulardii 250 MG CAP PO SCH (21:48)
[2020-09-17] MEDS: Cyanocobalamin (Vitamin B-12) 1,000 MCG TAB PO SCH (21:49)
[2020-09-17] MEDS: Melatonin 3 MG TAB PO SCH (21:49)
[2020-09-18 07:05] LABS: INR-International Normal Ratio 2.6; Prothrombin Time 28.2 sec (12.0-14.7)
[2020-09-18 07:06] LABS: PTT 57.2 sec (22.9-36.1)
[2020-09-18] MEDS: Bisacodyl 10 MG SUPP PR SCH (09:49)
[2020-09-18] MEDS: Famotidine 20 MG TAB PO SCH ×2 (10:21→20:35)
[2020-09-18] MEDS: Polyethylene Glycol 3350 17 GM Packet PO SCH (10:22)
[2020-09-18] MEDS: Senokot S 8.6-50 MG TAB PO SCH ×2 (10:22→20:37)
[2020-09-18] MEDS: Ascorbic Acid 500 mg Chewable Tablet PO SCH ×2 (10:23→20:38)
[2020-09-18] MEDS: Amiodarone 200 MG TAB PO SCH ×2 (10:24→20:37)
[2020-09-18] MEDS: Folic Acid 1 MG TAB PO SCH (10:24)
[2020-09-18] MEDS: Ferrous Sulfate 325 MG TAB PO SCH (10:25)
[2020-09-18] MEDS: Aspirin 81 mg Enteric Coated Tablet PO SCH (10:27)
[2020-09-18] MEDS: levETIRAcetam 500 mg/5 ml Oral Solution PO SCH ×2 (10:33→20:38)
[2020-09-18] MEDS: levETIRAcetam 500 MG TAB PO SCH (10:36)
[2020-09-18] MEDS: Oxybutynin ER 5 MG TAB PO SCH (10:50)
[2020-09-18] MEDS ORDERED: Warfarin Sodium 2.5 MG TAB PO SCH (17:00)
[2020-09-18] MEDS: Acetaminophen 325 MG TAB PO PRN ×2 (19:29→23:32)
[2020-09-18] MEDS: Montelukast Sodium 10 mg Tablet PO SCH (20:35)
[2020-09-18] MEDS: Cyanocobalamin (Vitamin B-12) 1,000 MCG TAB PO SCH (20:36)
[2020-09-18] MEDS: Melatonin 3 MG TAB PO SCH (20:36)
[2020-09-18] MEDS: Zinc Sulfate 220 MG CAP PO SCH (20:37)
[2020-09-18] MEDS: Saccharomyces boulardii 250 MG CAP PO SCH (20:38)
[2020-09-18] MEDS: diphenhydrAMINE 25 MG CAP PO PRN (22:09)
[2020-09-18] MEDS ORDERED: Pantoprazole 40 MG VIAL IVP SCH (23:45)
[2020-09-19 00:51] LABS: Hemoglobin 9.4 g/dL (12.0-16.0)
[2020-09-19 06:14] LABS: Hemoglobin 9.2 g/dL (12.0-16.0)
[2020-09-19 06:24] LABS: INR-International Normal Ratio 2.8; Prothrombin Time 29.8 sec (12.0-14.7)
[2020-09-19 06:25] LABS: PTT 61.3 sec (22.9-36.1)
[2020-09-19] MEDS: Bisacodyl 10 MG SUPP PR SCH (09:45)
[2020-09-19] MEDS: Senokot S 8.6-50 MG TAB PO SCH ×2 (09:46→22:29)
[2020-09-19] MEDS: Polyethylene Glycol 3350 17 GM Packet PO SCH (09:46)
[2020-09-19] MEDS: Ferrous Sulfate 325 MG TAB PO SCH (10:14)
[2020-09-19] MEDS: Folic Acid 1 MG TAB PO SCH (10:14)
[2020-09-19] MEDS: Amiodarone 200 MG TAB PO SCH ×2 (10:14→22:30)
[2020-09-19] MEDS: Famotidine 20 MG TAB PO SCH ×2 (10:15→22:29)
[2020-09-19] MEDS: Ascorbic Acid 500 mg Chewable Tablet PO SCH ×2 (10:15→22:30)
[2020-09-19] MEDS: Aspirin 81 mg Enteric Coated Tablet PO SCH (10:15)
[2020-09-19] MEDS: Pantoprazole 40 MG VIAL IVP SCH ×2 (10:16→22:31)
[2020-09-19] MEDS: levETIRAcetam 500 mg/5 ml Oral Solution PO SCH ×2 (10:16→22:30)
[2020-09-19 12:18] VITALS: BMI 31.6
[2020-09-19 18:05] LABS: #Lymphocytes 0.6 thou/uL (1.20-3.40); #Monocytes 0.2 thou/uL (0.11-0.59); #Neutrophils 2.4 thou/uL (1.40-6.50); %Eosinophils 0.1 % (0.0-10.0); %Lymphocytes 19.1 % (21.0-51.0); %Monocytes 7.5 % (0.0-10.0); %Neutrophils 73.4 % (42.0-75.0); Hemoglobin 9.8 g/dL (12.0-16.0); Mean Corpuscular HGB CONC 33.2 g/dL (32.0-36.0); Mean Corpuscular Hemoglobin 30.8 pg (27.0-31.0); Mean Corpuscular Volume 92.9 fL (78.0-98.0); Platelet Count 109 thou/uL (130-400); RBC Distribution Width 14.7 % (11.5-14.5); Red Blood Cell (RBC) Count 3.18 mill/uL (4.20-5.40); White Blood Cell (WBC) Count 3.2 thou/uL (4.8-10.8)
[2020-09-19] MEDS: Zinc Sulfate 220 MG CAP PO SCH (22:28)
[2020-09-19] MEDS: Montelukast Sodium 10 mg Tablet PO SCH (22:29)
[2020-09-19] MEDS: Melatonin 3 MG TAB PO SCH (22:29)
[2020-09-19] MEDS: Saccharomyces boulardii 250 MG CAP PO SCH (22:30)
[2020-09-19] MEDS: Cyanocobalamin (Vitamin B-12) 1,000 MCG TAB PO SCH (22:31)
[2020-09-20 06:45] LABS: INR-International Normal Ratio 2.7; PTT 62.7 sec (22.9-36.1); Prothrombin Time 29.6 sec (12.0-14.7)
[2020-09-20 06:50] LABS: Anion Gap 8 mmol/L (10-20); BUN (Urea Nitrogen) 7 mg/dL (9.8-20.1); Calc. Creatinine Clearance 106 mL/min (70-130); Calcium 8.1 mg/dL (7.8-10.44); Carbon Dioxide 27 mmol/L (23-31); Chloride 108 mmol/L (98-107); Glucose 73 mg/dL (80-115); Potassium 3.8 mmol/L (3.5-5.1); Sodium 139 mmol/L (136-145)
[2020-09-20] MEDS: Bisacodyl 10 MG SUPP PR SCH (09:31)
[2020-09-20] MEDS: Senokot S 8.6-50 MG TAB PO SCH ×2 (09:32→19:40)
[2020-09-20] MEDS: Amiodarone 200 MG TAB PO SCH ×2 (09:33→20:17)
[2020-09-20] MEDS: Polyethylene Glycol 3350 17 GM Packet PO SCH (09:33)
[2020-09-20] MEDS: Famotidine 20 MG TAB PO SCH ×2 (09:33→20:15)
[2020-09-20] MEDS: Folic Acid 1 MG TAB PO SCH (09:33)
[2020-09-20] MEDS: Ascorbic Acid 500 mg Chewable Tablet PO SCH ×2 (09:33→20:16)
[2020-09-20] MEDS: Aspirin 81 mg Enteric Coated Tablet PO SCH (09:33)
[2020-09-20] MEDS: Pantoprazole 40 MG VIAL IVP SCH ×2 (09:34→20:21)
[2020-09-20] MEDS: Ferrous Sulfate 325 MG TAB PO SCH (09:34)
[2020-09-20] MEDS: levETIRAcetam 500 mg/5 ml Oral Solution PO SCH ×2 (09:34→20:22)
[2020-09-20] MEDS ORDERED: Pepto Bismol Chew TAB PO PRN (11:53)
[2020-09-20 15:49] LABS: #Lymphocytes 0.6 thou/uL (1.20-3.40); #Monocytes 0.2 thou/uL (0.11-0.59); #Neutrophils 2.4 thou/uL (1.40-6.50); %Eosinophils 0.2 % (0.0-10.0); %Lymphocytes 17.7 % (21.0-51.0); %Monocytes 6.9 % (0.0-10.0); %Neutrophils 75.3 % (42.0-75.0); Hemoglobin 10.3 g/dL (12.0-16.0); Mean Corpuscular HGB CONC 33.2 g/dL (32.0-36.0); Mean Corpuscular Hemoglobin 30.8 pg (27.0-31.0); Mean Corpuscular Volume 92.9 fL (78.0-98.0); Mean Platelet Volume 7.5 fL (7.4-10.4); Platelet Count 119 thou/uL (130-400); RBC Distribution Width 14.7 % (11.5-14.5); Red Blood Cell (RBC) Count 3.33 mill/uL (4.20-5.40); White Blood Cell (WBC) Count 3.2 thou/uL (4.8-10.8)
[2020-09-20] MEDS: Acetaminophen 325 MG TAB PO PRN (18:17)
[2020-09-20] MEDS: diphenhydrAMINE 25 MG CAP PO PRN (20:14)
[2020-09-20] MEDS: Cyanocobalamin (Vitamin B-12) 1,000 MCG TAB PO SCH (20:16)
[2020-09-20] MEDS: Melatonin 3 MG TAB PO SCH (20:18)
[2020-09-20] MEDS: Montelukast Sodium 10 mg Tablet PO SCH (20:19)
[2020-09-20] MEDS: Zinc Sulfate 220 MG CAP PO SCH (20:21)
[2020-09-20] MEDS: Saccharomyces boulardii 250 MG CAP PO SCH (20:21)
[2020-09-21] MEDS: Acetaminophen 325 MG TAB PO PRN ×2 (05:11→15:47)
[2020-09-21 06:24] LABS: INR-International Normal Ratio 2.4; Prothrombin Time 26.6 sec (12.0-14.7)
[2020-09-21 06:34] LABS: Anion Gap 8 mmol/L (10-20); BUN (Urea Nitrogen) 8 mg/dL (9.8-20.1); Calc. Creatinine Clearance 96 mL/min (70-130); Calcium 7.8 mg/dL (7.8-10.44); Carbon Dioxide 28 mmol/L (23-31); Chloride 109 mmol/L (98-107); Glucose 80 mg/dL (80-115); Potassium 3.8 mmol/L (3.5-5.1); Sodium 141 mmol/L (136-145)
[2020-09-21] MEDS: Ferrous Sulfate 325 MG TAB PO SCH (10:16)
[2020-09-21] MEDS: levETIRAcetam 500 mg/5 ml Oral Solution PO SCH ×2 (10:16→21:08)
[2020-09-21] MEDS: Pantoprazole 40 MG VIAL IVP SCH ×2 (10:17→21:09)
[2020-09-21] MEDS: Amiodarone 200 MG TAB PO SCH ×2 (10:17→21:08)
[2020-09-21] MEDS: Bisacodyl 10 MG SUPP PR SCH (10:17)
[2020-09-21] MEDS: Folic Acid 1 MG TAB PO SCH (10:17)
[2020-09-21] MEDS: Famotidine 20 MG TAB PO SCH ×2 (10:17→21:08)
[2020-09-21] MEDS: Ascorbic Acid 500 mg Chewable Tablet PO SCH ×2 (10:17→21:08)
[2020-09-21] MEDS: Polyethylene Glycol 3350 17 GM Packet PO SCH (10:18)
[2020-09-21] MEDS: Senokot S 8.6-50 MG TAB PO SCH ×2 (10:18→21:09)
[2020-09-21] MEDS: diphenhydrAMINE 25 MG CAP PO PRN (21:08)
[2020-09-21] MEDS: Saccharomyces boulardii 250 MG CAP PO SCH (21:08)
[2020-09-21] MEDS: Zinc Sulfate 220 MG CAP PO SCH (21:08)
[2020-09-21] MEDS: Cyanocobalamin (Vitamin B-12) 1,000 MCG TAB PO SCH (21:08)
[2020-09-21] MEDS: Montelukast Sodium 10 mg Tablet PO SCH (21:09)
[2020-09-21] MEDS: Melatonin 3 MG TAB PO SCH (21:10)
[2020-09-22] MEDS: Acetaminophen 325 MG TAB PO PRN (00:18)
[2020-09-22 05:49] LABS: #Lymphocytes 0.6 thou/uL (1.20-3.40); #Monocytes 0.2 thou/uL (0.11-0.59); #Neutrophils 1.2 thou/uL (1.40-6.50); %Eosinophils 0.4 % (0.0-10.0); %Lymphocytes 31.1 % (21.0-51.0); %Monocytes 10.8 % (0.0-10.0); %Neutrophils 57.7 % (42.0-75.0); Mean Corpuscular HGB CONC 33.4 g/dL (32.0-36.0); Mean Corpuscular Hemoglobin 30.8 pg (27.0-31.0); Mean Corpuscular Volume 92.4 fL (78.0-98.0); Mean Platelet Volume 7.2 fL (7.4-10.4); Platelet Count 112 thou/uL (130-400); RBC Distribution Width 14.7 % (11.5-14.5); Red Blood Cell (RBC) Count 2.93 mill/uL (4.20-5.40)
[2020-09-22 05:57] LABS: Prothrombin Time 23.1 sec (12.0-14.7)
[2020-09-22 05:58] LABS: PTT 53.4 sec (22.9-36.1)
[2020-09-22] MEDS: Ascorbic Acid 500 mg Chewable Tablet PO SCH ×2 (08:36→20:21)
[2020-09-22] MEDS: Senokot S 8.6-50 MG TAB PO SCH ×2 (08:36→20:21)
[2020-09-22] MEDS: levETIRAcetam 500 mg/5 ml Oral Solution PO SCH ×2 (08:36→20:22)
[2020-09-22] MEDS: Famotidine 20 MG TAB PO SCH ×2 (08:36→20:21)
[2020-09-22] MEDS: Ferrous Sulfate 325 MG TAB PO SCH (08:36)
[2020-09-22] MEDS: Bisacodyl 10 MG SUPP PR SCH (08:36)
[2020-09-22] MEDS: Folic Acid 1 MG TAB PO SCH (08:36)
[2020-09-22] MEDS: Pantoprazole 40 MG VIAL IVP SCH ×2 (08:37→20:22)
[2020-09-22] MEDS: Polyethylene Glycol 3350 17 GM Packet PO SCH (08:37)
[2020-09-22] MEDS: Amiodarone 200 MG TAB PO SCH ×2 (09:48→20:21)
[2020-09-22] MEDS: Zinc Sulfate 220 MG CAP PO SCH (20:21)
[2020-09-22] MEDS: Montelukast Sodium 10 mg Tablet PO SCH (20:21)
[2020-09-22] MEDS: Saccharomyces boulardii 250 MG CAP PO SCH (20:21)
[2020-09-22] MEDS: Cyanocobalamin (Vitamin B-12) 1,000 MCG TAB PO SCH (20:21)
[2020-09-22] MEDS: diphenhydrAMINE 25 MG CAP PO PRN (20:21)
[2020-09-22] MEDS: Melatonin 3 MG TAB PO SCH (20:32)
[2020-09-23] MEDS: Acetaminophen 325 MG TAB PO PRN (01:38)
[2020-09-23] MEDS: diphenhydrAMINE 25 MG CAP PO PRN ×2 (01:38→20:41)
[2020-09-23 05:47] LABS: #Lymphocytes 0.6 thou/uL (1.20-3.40); #Monocytes 0.3 thou/uL (0.11-0.59); #Neutrophils 1.3 thou/uL (1.40-6.50); %Basophils 0.2 % (0.0-1.0); %Eosinophils 0.5 % (0.0-10.0); %Lymphocytes 28.2 % (21.0-51.0); %Monocytes 12.6 % (0.0-10.0); %Neutrophils 58.4 % (42.0-75.0); Hemoglobin 9.6 g/dL (12.0-16.0); Mean Corpuscular HGB CONC 33.5 g/dL (32.0-36.0); Mean Corpuscular Hemoglobin 31.2 pg (27.0-31.0); Mean Corpuscular Volume 93.3 fL (78.0-98.0); Mean Platelet Volume 7.3 fL (7.4-10.4); Platelet Count 129 thou/uL (130-400); RBC Distribution Width 14.7 % (11.5-14.5); Red Blood Cell (RBC) Count 3.06 mill/uL (4.20-5.40); White Blood Cell (WBC) Count 2.2 thou/uL (4.8-10.8)
[2020-09-23 06:00] LABS: INR-International Normal Ratio 1.5; PTT 45.2 sec (22.9-36.1); Prothrombin Time 18.5 sec (12.0-14.7)
[2020-09-23] MEDS: Dextrose 5% in Water 1,000 ML IV SCH ×3 (06:05→22:58)
[2020-09-23] MEDS: Pantoprazole 40 MG VIAL IVP SCH ×2 (08:11→20:56)
[2020-09-23] MEDS: Bisacodyl 10 MG SUPP PR SCH (08:13)
[2020-09-23] MEDS: Ascorbic Acid 500 mg Chewable Tablet PO SCH ×2 (08:13→20:42)
[2020-09-23] MEDS: Folic Acid 1 MG TAB PO SCH (08:13)
[2020-09-23] MEDS: Ferrous Sulfate 325 MG TAB PO SCH (08:13)
[2020-09-23] MEDS: Famotidine 20 MG TAB PO SCH ×2 (08:13→20:41)
[2020-09-23] MEDS: Amiodarone 200 MG TAB PO SCH ×2 (08:13→20:41)
[2020-09-23] MEDS: Senokot S 8.6-50 MG TAB PO SCH ×2 (08:14→20:42)
[2020-09-23] MEDS: Polyethylene Glycol 3350 17 GM Packet PO SCH (08:14)
[2020-09-23] MEDS: levETIRAcetam 500 mg/5 ml Oral Solution PO SCH ×2 (08:14→20:41)
[2020-09-23] MEDS ORDERED: PROPOFOL 200 MG/20 ML VIAL ONE (11:03)
[2020-09-23] MEDS ORDERED: Promethazine HCl 25 MG/ML VIAL IM PRN (11:39)
[2020-09-23] MEDS ORDERED: Ondansetron HCl/PF 4 MG/2 ML Vial IVP PRN (11:39)
[2020-09-23] MEDS ORDERED: Promethazine HCl 25 MG/ML VIAL SLOW IVP PRN (11:39)
[2020-09-23] MEDS ORDERED: GoLYTELY 4,000 ml Bottle PO SCH (17:00)
[2020-09-23] MEDS: Melatonin 3 MG TAB PO SCH (20:41)
[2020-09-23] MEDS: Montelukast Sodium 10 mg Tablet PO SCH (20:42)
[2020-09-23] MEDS: Zinc Sulfate 220 MG CAP PO SCH (20:42)
[2020-09-23] MEDS: Cyanocobalamin (Vitamin B-12) 1,000 MCG TAB PO SCH (20:42)
[2020-09-23] MEDS: Saccharomyces boulardii 250 MG CAP PO SCH (20:42)
[2020-09-24 06:57] LABS: #Lymphocytes 0.6 thou/uL (1.20-3.40); #Monocytes 0.3 thou/uL (0.11-0.59); #Neutrophils 1.6 thou/uL (1.40-6.50); %Eosinophils 0.3 % (0.0-10.0); %Lymphocytes 25.1 % (21.0-51.0); %Monocytes 10.4 % (0.0-10.0); %Neutrophils 63.3 % (42.0-75.0); Hemoglobin 10.4 g/dL (12.0-16.0); Mean Corpuscular HGB CONC 33.2 g/dL (32.0-36.0); Mean Corpuscular Hemoglobin 30.9 pg (27.0-31.0); Mean Corpuscular Volume 93.1 fL (78.0-98.0); Mean Platelet Volume 7.4 fL (7.4-10.4); Platelet Count 127 thou/uL (130-400); RBC Distribution Width 15.1 % (11.5-14.5); Red Blood Cell (RBC) Count 3.37 mill/uL (4.20-5.40); White Blood Cell (WBC) Count 2.6 thou/uL (4.8-10.8)
[2020-09-24 07:04] LABS: INR-International Normal Ratio 1.3; Prothrombin Time 16.9 sec (12.0-14.7)
[2020-09-24 07:05] LABS: PTT 42.4 sec (22.9-36.1)
[2020-09-24] MEDS: Dextrose 5% in Water 1,000 ML IV SCH ×2 (08:00→23:54)
[2020-09-24] MEDS: Folic Acid 1 MG TAB PO SCH (08:01)
[2020-09-24] MEDS: Bisacodyl 10 MG SUPP PR SCH (08:01)
[2020-09-24] MEDS: Ferrous Sulfate 325 MG TAB PO SCH (08:01)
[2020-09-24] MEDS: Amiodarone 200 MG TAB PO SCH ×2 (08:01→19:48)
[2020-09-24] MEDS: Famotidine 20 MG TAB PO SCH ×2 (08:01→19:48)
[2020-09-24] MEDS: Ascorbic Acid 500 mg Chewable Tablet PO SCH ×2 (08:01→19:48)
[2020-09-24] MEDS: levETIRAcetam 500 mg/5 ml Oral Solution PO SCH ×2 (08:02→19:49)
[2020-09-24] MEDS: Polyethylene Glycol 3350 17 GM Packet PO SCH (08:02)
[2020-09-24] MEDS: Senokot S 8.6-50 MG TAB PO SCH ×2 (08:02→19:48)
[2020-09-24] MEDS: Pantoprazole 40 MG VIAL IVP SCH ×2 (08:02→19:49)
[2020-09-24] MEDS ORDERED: Cepastat Lozenges 1 LOZ PO PRN (10:14)
[2020-09-24] MEDS ORDERED: Sodium Chloride 0.65% Nasal 44 ML BOT EA NARE PRN (10:14)
[2020-09-24] MEDS ORDERED: GUAIFENESIN SF SOLN 200 MG/10 ML UDCUP PO PRN (10:14)
[2020-09-24] MEDS ORDERED: hydrALAZINE 20 MG/ML VIAL SLOW IVP PRN (10:14)
[2020-09-24] MEDS: Cyanocobalamin (Vitamin B-12) 1,000 MCG TAB PO SCH (19:45)
[2020-09-24] MEDS: Montelukast Sodium 10 mg Tablet PO SCH (19:46)
[2020-09-24] MEDS: Melatonin 3 MG TAB PO SCH (19:46)
[2020-09-24] MEDS: Zinc Sulfate 220 MG CAP PO SCH (19:48)
[2020-09-24] MEDS: Saccharomyces boulardii 250 MG CAP PO SCH (19:49)
[2020-09-25] MEDS: Dextrose 5% in Water 1,000 ML IV SCH ×2 (04:02→17:07)
[2020-09-25 06:22] LABS: #Lymphocytes 0.6 thou/uL (1.20-3.40); #Monocytes 0.3 thou/uL (0.11-0.59); #Neutrophils 1.4 thou/uL (1.40-6.50); %Basophils 0.6 % (0.0-1.0); %Eosinophils 0.5 % (0.0-10.0); %Lymphocytes 25.5 % (21.0-51.0); %Monocytes 13.7 % (0.0-10.0); %Neutrophils 59.7 % (42.0-75.0); Hemoglobin 9.3 g/dL (12.0-16.0); Mean Corpuscular HGB CONC 33.3 g/dL (32.0-36.0); Mean Corpuscular Hemoglobin 30.8 pg (27.0-31.0); Mean Corpuscular Volume 92.6 fL (78.0-98.0); Mean Platelet Volume 7.2 fL (7.4-10.4); Platelet Count 119 thou/uL (130-400); RBC Distribution Width 15.1 % (11.5-14.5); Red Blood Cell (RBC) Count 3.03 mill/uL (4.20-5.40); White Blood Cell (WBC) Count 2.4 thou/uL (4.8-10.8)
[2020-09-25 06:23] LABS: INR-International Normal Ratio 1.3; PTT 41.5 sec (22.9-36.1); Prothrombin Time 16.5 sec (12.0-14.7)
[2020-09-25 06:38] LABS: Anion Gap 9 mmol/L (10-20); BUN (Urea Nitrogen) 6 mg/dL (9.8-20.1); Calc. Creatinine Clearance 114 mL/min (70-130); Calcium 7.9 mg/dL (7.8-10.44); Carbon Dioxide 27 mmol/L (23-31); Chloride 108 mmol/L (98-107); Glucose 91 mg/dL (80-115); Potassium 3.5 mmol/L (3.5-5.1); Sodium 140 mmol/L (136-145)
[2020-09-25] MEDS: levETIRAcetam 500 mg/5 ml Oral Solution PO SCH ×2 (08:24→20:04)
[2020-09-25] MEDS: Amiodarone 200 MG TAB PO SCH ×2 (08:24→20:10)
[2020-09-25] MEDS: Senokot S 8.6-50 MG TAB PO SCH ×2 (08:24→20:14)
[2020-09-25] MEDS: Famotidine 20 MG TAB PO SCH ×2 (08:24→20:08)
[2020-09-25] MEDS: Polyethylene Glycol 3350 17 GM Packet PO SCH (08:24)
[2020-09-25] MEDS: Ascorbic Acid 500 mg Chewable Tablet PO SCH ×2 (08:25→20:12)
[2020-09-25] MEDS: Folic Acid 1 MG TAB PO SCH (08:25)
[2020-09-25] MEDS: Ferrous Sulfate 325 MG TAB PO SCH (08:25)
[2020-09-25] MEDS: Bisacodyl 10 MG SUPP PR SCH (08:30)
[2020-09-25] MEDS: Pantoprazole 40 MG VIAL IVP SCH ×2 (08:39→20:13)
[2020-09-25] MEDS: Melatonin 3 MG TAB PO SCH (20:05)
[2020-09-25] MEDS: Saccharomyces boulardii 250 MG CAP PO SCH (20:07)
[2020-09-25] MEDS: Cyanocobalamin (Vitamin B-12) 1,000 MCG TAB PO SCH (20:10)
[2020-09-25] MEDS: Zinc Sulfate 220 MG CAP PO SCH (20:10)
[2020-09-25] MEDS: Montelukast Sodium 10 mg Tablet PO SCH (20:12)
[2020-09-26] MEDS: diphenhydrAMINE 25 MG CAP PO PRN (05:54)
[2020-09-26] MEDS: Dextrose 5% in Water 1,000 ML IV SCH ×3 (05:55→13:13)
[2020-09-26 06:12] LABS: #Lymphocytes 0.6 thou/uL (1.20-3.40); #Monocytes 0.4 thou/uL (0.11-0.59); #Neutrophils 1.7 thou/uL (1.40-6.50); %Eosinophils 0.1 % (0.0-10.0); %Lymphocytes 22.3 % (21.0-51.0); %Monocytes 13.3 % (0.0-10.0); %Neutrophils 64.3 % (42.0-75.0); Hemoglobin 9.6 g/dL (12.0-16.0); Mean Corpuscular HGB CONC 32.9 g/dL (32.0-36.0); Mean Corpuscular Hemoglobin 30.4 pg (27.0-31.0); Mean Corpuscular Volume 92.6 fL (78.0-98.0); Mean Platelet Volume 7.2 fL (7.4-10.4); Platelet Count 129 thou/uL (130-400); RBC Distribution Width 15.2 % (11.5-14.5); Red Blood Cell (RBC) Count 3.15 mill/uL (4.20-5.40); White Blood Cell (WBC) Count 2.7 thou/uL (4.8-10.8)
[2020-09-26 06:17] LABS: INR-International Normal Ratio 1.2; PTT 38.2 sec (22.9-36.1); Prothrombin Time 15.4 sec (12.0-14.7)
[2020-09-26 07:01] LABS: BUN (Urea Nitrogen) 5 mg/dL (9.8-20.1); Calc. Creatinine Clearance 106 mL/min (70-130); Carbon Dioxide 27 mmol/L (23-31); Chloride 108 mmol/L (98-107); Glucose 95 mg/dL (80-115); Potassium 3.6 mmol/L (3.5-5.1); Sodium 140 mmol/L (136-145)
[2020-09-26 07:43] LABS: Anion Gap 9 mmol/L (10-20)
[2020-09-26] MEDS: Senokot S 8.6-50 MG TAB PO SCH (08:54)
[2020-09-26] MEDS: Polyethylene Glycol 3350 17 GM Packet PO SCH (08:55)
[2020-09-26] MEDS: Ferrous Sulfate 325 MG TAB PO SCH (08:55)
[2020-09-26] MEDS: levETIRAcetam 500 mg/5 ml Oral Solution PO SCH (08:55)
[2020-09-26] MEDS: Ascorbic Acid 500 mg Chewable Tablet PO SCH (08:55)
[2020-09-26] MEDS: Bisacodyl 10 MG SUPP PR SCH ×2 (08:55→09:09)
[2020-09-26] MEDS: Folic Acid 1 MG TAB PO SCH (08:55)
[2020-09-26] MEDS: Amiodarone 200 MG TAB PO SCH (08:55)
[2020-09-26] MEDS: Pantoprazole 40 MG VIAL IVP SCH (08:56)
[2020-09-26] MEDS: Famotidine 20 MG TAB PO SCH (09:35)
[2020-09-26] MEDS ORDERED: Warfarin Sodium 2.5 MG TAB PO SCH (17:00)
[2020-09-26 17:43] VITALS: BP 120/79; TEMP 98.9
== END 2020-09-26 17:43 | DRG 871 ==
LOC: ERS 19:18 → 2NO 22:42 → T4-B 09-17 18:21
PROVIDERS: ADMIT Internal Medicine; ATTEND Internal Medicine
PROC: 8E0ZXY6 Isolation (ICD-10-PCS; 2020-09-03)
PROC: 06H03DZ Insertion of Intraluminal Device into Inferior Vena Cava, Percutaneous Approach (ICD-10-PCS; principal; 2020-09-06)
PROC: B519ZZZ Fluoroscopy of Inferior Vena Cava (ICD-10-PCS; 2020-09-06)
PROC: 0DB78ZX Excision of Stomach, Pylorus, Via Natural or Artificial Opening Endoscopic, Diagnostic (ICD-10-PCS; 2020-09-23)
DX: A41.9 Sepsis, unspecified organism (principal); L89.614 Pressure ulcer of right heel, stage 4; L89.153 Pressure ulcer of sacral region, stage 3; Z20.822 Contact with and (suspected) exposure to COVID-19; K29.71 Gastritis, unspecified, with bleeding; E87.2 Acidosis; N30.00 Acute cystitis without hematuria; I82.413 Acute embolism and thrombosis of femoral vein, bilateral; I82.813 Embolism and thrombosis of superficial veins of lower extremities, bilateral; D69.3 Immune thrombocytopenic purpura; I47.1 Supraventricular tachycardia; I48.92 Unspecified atrial flutter; D61.818 Other pancytopenia; G40.909 Epilepsy, unspecified, not intractable, without status epilepticus; J45.20 Mild intermittent asthma, uncomplicated; R26.9 Unspecified abnormalities of gait and mobility; I10 Essential (primary) hypertension; F79 Unspecified intellectual disabilities; E87.6 Hypokalemia; E66.01 Morbid (severe) obesity due to excess calories; I08.3 Combined rheumatic disorders of mitral, aortic and tricuspid valves; I45.81 Long QT syndrome; F25.9 Schizoaffective disorder, unspecified; R79.1 Abnormal coagulation profile; N32.81 Overactive bladder; I48.0 Paroxysmal atrial fibrillation; I95.9 Hypotension, unspecified; E87.8 Other disorders of electrolyte and fluid balance, not elsewhere classified; E83.42 Hypomagnesemia; E16.2 Hypoglycemia, unspecified; Z28.21 Immunization not carried out because of patient refusal; Z88.0 Allergy status to penicillin; Z79.899 Other long term (current) drug therapy; Z79.82 Long term (current) use of aspirin; Z90.710 Acquired absence of both cervix and uterus; Z68.31 Body mass index [BMI] 31.0-31.9, adult; Z79.01 Long term (current) use of anticoagulants
CPT/HCPCS: 36415; 36416; 37191; 71045; 71275; 76942; 80048; 80053; 80202; 81003; 81015; 82274; 82533; 83605; 83735; 83880; 84100; 84439; 84443; 84481; 84484; 85014; 85018; 85025; 85610; 85652; 85730; 86140; 87040; 87077; 87086; 87149; 87186; 88305; 93005; 93010; 93306; 93970; 96365; 96366; 96368; C1880; C9113; J0692; J0696; J1650; J2001; J2704; J3370; J3475; J3480; J3490; J7030; J7050; Q0163; Q9967; U0002